=== PATIENT | male | born 1960 | race Caucasian/White ===

== ENCOUNTER 2016-05-03 21:10 | Inpatient (IN) | payer OTHER ==
[2016-05-03] MEDS ORDERED: methylPREDNISolone 125 MG* 2 ML VIAL IV ONE (21:11)
[2016-05-03] MEDS ORDERED: Albuterol/Ipratropium NEB.SOL* Albuterol 2.5 MG/Ipratropium 0.5 MG 3 ML INH ONE (21:11)
[2016-05-03 21:25] LABS: Hematocrit 45 % (42-52); Hemoglobin 15.2 g/dl (14.0-18.0); Mean Corpuscular HGB Conc 34 g/dl (31-36); Mean Corpuscular Hemoglobin 35 pg (27-31); Mean Corpuscular Volume 104 fL (80-94); Mean Platelet Volume 8 um3 (7.4-10.4); Red Blood Count 4.32 10^6/ul (4.0-5.4); Red Cell Distribution Width 12 % (10.5-15)
[2016-05-03 21:32] LABS: BIPAP yes; FIO2 40; Resp Rate 14
[2016-05-03 21:35] LABS: PCO2 Arterial 41 mmHg (35-45)
[2016-05-03 21:40] LABS: Albumin 4.5 g/dL (3.2-5.2); BUN/Creatinine Ratio 7.6 (8-20); Calcium 9.4 mg/dL (8.6-10.3); EGFR African American 110.3 (>60); EGFR Non-African American 85.7 (>60); Globulin 3.1 g/dL (2-4); Potassium 4.1 mmol/L (3.5-5.0); Total Bilirubin 0.5 mg/dL (0.2-1.0); Total Protein 7.6 g/dL (6.4-8.9)
--- NOTE | 2016-05-03 22:17 | RAD ---
Indication: Shortness of breath. Single frontal view of the chest performed at 2140 hours was reviewed. Comparison is made with previous exam dated February 19, 2015. No mediastinal shift is noted. Heart is of normal size and configuration. Lung earl appear clear. IMPRESSION: NO ACTIVE CARDIOPULMONARY DISEASE IS NOTED.
[2016-05-03 22:30] LABS: Troponin I 0.07 ng/mL (<0.04)
[2016-05-03 22:50] LABS: EPAP 6; FIO2 40; IPAP 16; Resp Rate 14
[2016-05-03 22:51] LABS: PCO2 Arterial 36 mmHg (35-45)
[2016-05-03] MEDS ORDERED: Aspirin TAB* 325 MG PO ONE (22:57)
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
[2016-05-03] MEDS ORDERED: Albuterol HFA INHALER* 8 gm MDI INH PRN (23:55)
[2016-05-03] MEDS ORDERED: Cyclobenzaprine TAB* 10 MG PO PRN (23:55)
[2016-05-04] MEDS: oxyCODONE/Acetamin 5/325 MG* TAB PO PRN ×3 (02:02→22:34)
[2016-05-04] MEDS: Azithromycin IV(*) 500 MG in NS 0.9% 250 ML* 250 ML IVPB SCH (02:03)
[2016-05-04] MEDS: Benzonatate CAP* 100 MG PO PRN (02:13)
[2016-05-04] MEDS ORDERED: methylPREDNISolone SOD 40 MG* 1 ML VIAL IV SCH (05:19)
[2016-05-04] MEDS: Albuterol/Ipratropium NEB.SOL* Albuterol 2.5 MG/Ipratropium 0.5 MG 3 ML INH PRN ×3 (05:50→10:51)
[2016-05-04] MEDS ORDERED: Heparin VIAL(*) 5000 UNITS/ML VIAL (FIVE THOUSAND) SUBCUT SCH (06:00)
[2016-05-04] MEDS ORDERED: Morphine INJ* 4 MG/ML 1 ML CARPUJECT ONE (06:28)
[2016-05-04] MEDS ORDERED: Nitroglycerin TAB 0.4 MG* 0.4 MG TAB ONE (06:29)
[2016-05-04] MEDS ORDERED: Heparin DRIP 25,000 UNITS(*) 25,000 UNITS/500 ML BAG IV SCH (06:45)
[2016-05-04] MEDS ORDERED: Morphine INJ* 2 MG/ML 1 ML CARPUJECT IV ONE (06:46)
[2016-05-04] MEDS ORDERED: Aspirin TAB* 325 MG PO ONE (06:48)
[2016-05-04] MEDS ORDERED: Morphine INJ* 2 MG/ML 1 ML CARPUJECT ONE (06:48)
[2016-05-04] MEDS: NS 0.9% 1000 ML* 1,000 ML IV SCH ×2 (06:53→23:40)
--- NOTE | 2016-05-04 06:55 | PN ---
Progress Note - Progress Note Note: CAT Team called. Patient with chest pain and worsening shortness of breath. Trop bumped to 0.85 and Lactic Acid to 6.6. Patient received 4 mg IV morphine and sl nitro with some relief. EKG done which showed sinus tach at 141 bpm. Nl axis . Qs in II,III and F. minimal ST depression in V4 - V6. Chest diffuse wheezing. Transferred to ICU. Although I still think demand ischemia may be NSTEMI. Start heparin drip. Give aspirin 325 mg. Cycle trops. NS and 125 cc/hr with increased lactic acid. Follow up lactic acid in 3 hours. Placed onb Bipap with improvement. Consider cardiology consult[facility]
[2016-05-04] MEDS ORDERED: Heparin VIAL(*) 5000 UNITS/ML VIAL (FIVE THOUSAND) IV SCH (07:00)
[2016-05-04 08:04] LABS: Troponin I 0.89 ng/mL (<0.04)
[2016-05-04] MEDS: Atorvastatin* 20 MG TAB PO SCH (08:04)
[2016-05-04] MEDS: Ferrous Sulfate TAB* 325 MG PO SCH (08:04)
[2016-05-04] MEDS: Omeprazole CAP* 20 MG PO SCH ×2 (08:04→20:33)
[2016-05-04] MEDS: Sucralfate TAB* 1 GM PO SCH ×2 (08:04→17:24)
[2016-05-04] MEDS: Nicotine PATCH 21 MG/24 HR* PATCH TRANSDERM SCH (08:11)
[2016-05-04] MEDS: Divalproex Sprinkle CAP* 125 MG PO SCH ×3 (08:11→20:33)
[2016-05-04] MEDS ORDERED: Omeprazole CAP* 20 MG PO SCH (09:00)
[2016-05-04] MEDS ORDERED: Influenza VAC *QUAD* 2016-17* 0.5 ML SYRINGE IM ONE (09:00)
[2016-05-04] MEDS ORDERED: Pneumococcal *Vac Polyvalent 0.5 ML VIAL IM ONE (09:00)
[2016-05-04 09:06] LABS: Hematocrit 41 % (42-52); Hemoglobin 13.7 g/dl (14.0-18.0); Mean Corpuscular HGB Conc 33 g/dl (31-36); Mean Corpuscular Hemoglobin 35 pg (27-31); Mean Platelet Volume 8 um3 (7.4-10.4); Red Blood Count 3.93 10^6/ul (4.0-5.4); Red Cell Distribution Width 13 % (10.5-15); White Blood Count 12.5 10^3/ul (3.5-10.8)
[2016-05-04 09:08] LABS: Comments Flag Yes; Mean Corpuscular Volume 105 fL (80-94)
[2016-05-04] MEDS ORDERED: Perflutren Prot Type A Micr (NF) 3 ML SDV IV ONE (09:20)
[2016-05-04] MEDS ORDERED: NS 0.9% 1000 ML* 1,000 ML IV ONE (09:52)
[2016-05-04] MEDS ORDERED: Perflutren Lipid Microsphere* 1.1 MG/ML VIAL INJ ONE (10:00)
--- NOTE | 2016-05-04 10:47 | ECHO ---
Patient: DANY NYE Rec#: [id number] : 1960 Date: 05/04/2016 Age: 56y Height: 162.56 cm / 64.0 in Weight: 73.48 kg / 161.9 lbs Sex: M BSA: 1.79 Admit Date#: 05/03/2016 Referring: Zoltan Gordillo MD Reading: Abiel Thomason MD Household Personal Assistant: Fabienne Hastings RDCS Household Personal Assistant: NAKIA CC: Mari Saunders MD Transthoracic Echocardiogram Findings History: COPD,seizures,GERD,GI bleed,former smoker,fibromyalgia. Technical Comments: The study is technically limited due to the patient's history of COPD. Completed at 1000. Left Ventricle: The left ventricular chamber size is normal. Global left ventricular wall motion and contractility are within normal limits. There is normal left ventricular systolic function. The estimated ejection fraction is 50-55%. The assessment of diastolic function is non-diagnostic. Left Atrium: The left atrial chamber size is normal. Right Ventricle: The right ventricular cavity size is normal. The right ventricular global systolic function is normal. Right Atrium: The right atrial cavity size is normal. Aortic Valve: The aortic valve is trileaflet. There is no evidence of aortic regurgitation. There is no evidence of aortic stenosis. Mitral Valve: The mitral valve leaflets appear normal. There is no evidence of mitral regurgitation. There is no evidence of mitral stenosis. Tricuspid Valve: The tricuspid valve leaflets are normal. There is no evidence of tricuspid valve regurgitation. Unable to estimate the right ventricular systolic pressure. There is no tricuspid stenosis. Pulmonic Valve: The pulmonic valve appears normal. There is no evidence of pulmonic regurgitation. There is no pulmonic stenosis. Pericardium: The pericardium appears normal. A pericardial fat pad is visualized. Aorta: The ascending aorta is not well visualized. The aortic arch is not well visualized. There is no dilation of the aortic root. Pulmonary Artery: The main pulmonary artery appears normal. Venous: The venous system is not well visualized. Contrast: Definity was used to optimize study. 1ml needed for optimization. Intravenous contrast was used to enhance endocardial border definition. Conclusions Global left ventricular wall motion and contractility are within normal limits. There is normal left ventricular systolic function. The estimated ejection fraction is 50-55%. The right ventricular global systolic function is normal. There is no evidence of aortic stenosis. There is no evidence of mitral regurgitation. There is no evidence of tricuspid valve regurgitation. Unable to estimate the right ventricular systolic pressure. The pericardium appears normal. The ascending aorta is not well visualized. Measurements Name Value Normal Range RVIDd (AP) 2D 1.8 cm (0.9 - 2.6) RVDdMajor (2D) 2.1 cm (2.2 - 4.4) IVSd (2D) 0.8 cm (0.6 - 1) LVPWd (2D) 0.8 cm (0.6 - 1) LVIDd (2D) 4.4 cm (3.6 - 5.4) LVIDs (2D) 3.6 cm - LV FS (2D) 18 % (25 - 45) Aortic Annulus 2 cm (1.4 - 2.6) Ao root diameter (2D) 3 cm (2.1 - 3.5) Name Value Normal Range MV E-wave Vmax 0.7 m/sec - MV deceleration time 96 msec - MV A-wave Vmax 1.1 m/sec - MV E:A ratio 0.7 ratio - LV septal e' Vmax 0.07 m/sec - LV lateral e' Vmax 0.1 m/sec - LV E:e' septal ratio 10 ratio - LV E:e' lateral ratio 7 ratio - Name Value Normal Range AV Vmax 1.5 m/sec - AV VTI 26 cm - AV peak gradient 9.06 mmHg - AV mean gradient 4.19 mmHg - LVOT Vmax 1.3 m/sec - LVOT VTI 17.7 cm - LVOT peak gradient 6.87 mmHg - LVOT mean gradient 3.24 mmHg - Name Value Normal Range PV Vmax 1.4 m/sec - PV peak gradient 7.78 mmHg -
[2016-05-04] MEDS ORDERED: Spiriva Inhaler DEVICE* 1 EACH DEVICE INH ONE (11:00)
[2016-05-04] MEDS: Albuterol HFA INHALER* 8 gm MDI INH SCH ×5 (11:18→19:37)
[2016-05-04] MEDS: Tiotropium CAP.INH* CAP.INH/18 MCG (USE ORDER SET !) INH SCH (11:19)
[2016-05-04] MEDS: methylPREDNISolone SOD 40 MG* 1 ML VIAL IV SCH ×3 (11:23→23:40)
[2016-05-04] MEDS: SPIRIVA RESPIMAT 1.25 MCG IN SCH (13:33)
--- NOTE | 2016-05-04 14:16 | PN ---
Progress Note - Progress Note Note: CRITICAL CARE MEDICINE Date: 05/04/16 Time: 1100 SUBJECTIVE: Patient seen and examined. PHYSICAL EXAM: Vital Signs: Reviewed. Neurologic: awake, communicating. HEENT: pupils equal. Sclera anicteric. Trachea midline. Cardiovascular: S1 S2 Respiratory: diffuse wheeze bl; prolonged exhalation. purse lip needs. vapotherm 40lpm Abdomen: Soft, nt. No r/g/r. Extremities: Warm. LABS: Reviewed. IMAGING: Reviewed. MEDICATIONS: Reviewed. ASSESSMENT: 56 F Acute hypercarbic respiratory failure copd exacerbation lactic acid demand ischemia with elevated troponin PLAN: Neurologic: awake, communicating, handling wob Cardiovascular: perfusing. may be a touch dry. and given lactate from wob will bolus liter fluid. Mild demand ischemia along with LA from his wob. not type 1. Respiratory: again wob and prolonged exhalation with accessory muscle use to a degree causing LA. keep on high flow O2. d/w pt if he feels tired or wheeze not breaking then would give morphine for vasopdilation and allow use of bipap. Neg dimer on admisssion, normal echo and significant bronchospasm on exam pointing away from VTE potentials. Can dc hepain gtt. Gastrointestinal: po diet. Renal/Metabolic: stable. f/u. Infectious Disease: on azithro and continued. Hematology: stable. hsq Endocrine: steroids. Musculoskeletal: oob. Psych/Social: pt expresses understanding and in good spirits. Supportive and preventative care as ordered. Vaccine: needs pneumvax , had flu already. SUP: po VTE prophylaxis: heparin Disposition: ICU Code Status: Full Critical Care Time: 30min Rafi Saucedo DO
--- NOTE | 2016-05-04 18:31 | HP ---
HISTORY AND PHYSICAL: DATE OF ADMISSION: 05/03/16 PRIMARY CARE PHYSICIAN: Mari Saunders MD CHIEF COMPLAINT: Shortness of breath. HISTORY OF PRESENT ILLNESS: The patient is a 56-year-old gentleman, who says for 1 to 1-1/2 weeks, he has had increasing shortness of breath with increased wheezing. He uses inhalers at home for his COPD, but he had no relief at this time. In fact, he coughed up some blood. He tried drinking a lot of water, which he felt would help, but did not work. He said he could not get in to his PCP and his shortness of breath got so bad, he came here. dry cough with significant chest tightness. In the ED, the patient was evaluated, initially required BiPAP because of the significant respiratory distress, but was good enough to come off the BiPAP. Initially, it was thought he could go to the floor , but later early in the morning, the patient did have a catching cold and was transferred to the unit for further BiPAP. 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 PAST SURGICAL HISTORY: Significant for right cataract extraction, right hip arthroplasty, and hiatal hernia repair. CURRENT MEDICATIONS: 1. Depakote 250 mg p.o. t.i.d. 2. Protonix 40 mg b.i.d. 3. Percocet 2 tabs t.i.d. as needed. 4. Spiriva 1 inhalation daily. 5. Sucralfate 1 g twice daily with meals. 6. Ferrous sulfate 325 mg daily. 7. Flexeril 10 mg every 8 hours as needed. 8. Lipitor 20 mg daily. 9. Albuterol inhaler 2 puffs every 6 hours as needed. ALLERGIES: PENICILLIN, anaphylaxis. FAMILY HISTORY: Mother at 67 of lymphoma. Father at 72 of stomach cancer. SOCIAL HISTORY: He still smokes about half a pack a day. He smoked up to pack a day, has been doing this for 30 years. Occasional alcohol. No recreational drug use. He is a cook. He from his . He has 1 daughter. His girlfriend, Deanne Healy, is his health care proxy. REVIEW OF SYSTEMS: A 14-point review of systems was completed with the patient. All pertinent positives and negatives are in the history of present illness, otherwise is negative. PHYSICAL EXAMINATION GENERAL: A pleasant gentleman, lying in bed, short of breath, in no acute distress at this time. VITAL SIGNS: Blood pressure 144/94, pulse ox 97%, respiratory rate 30 breaths per minute, heart rate 131 beats per minute, and temperature 98.1 degrees. HEENT: Normocephalic, atraumatic. Pupils are equal, round, and reactive to light. Moist mucous membranes. NECK: Supple. No JVD, bruits, palpable thyroid, or lymphadenopathy. CHEST: He has got bilateral diffuse wheezing. CARDIOVASCULAR: S1, S2 appreciated. Increased rate, regular rhythm. ABDOMEN: Positive bowel sounds in all 4 quadrants. Soft, nontender, and nondistended. EXTREMITIES: No cyanosis, clubbing, or edema; +2 peripheral pulses bilaterally. NEUROLOGIC: Alert and oriented x3. Moves all extremities. SKIN: No rashes or abnormalities. DIAGNOSTIC STUDIES/LAB DATA: White count 12.0, hemoglobin 15.2, hematocrit 45 , and platelets 275. Sodium 137, potassium 4.1, chloride 101, CO2 26, BUN 7, creatinine 0.92, glucose 105, and lactic acid 3.4. Troponin is 0.07. D-dimer is less than 200. Chest x-ray was interpreted by Radiology as no active cardiopulmonary disease is noted. EKG shows sinus tachycardia at 141 beats per minute, normal axis, and no acute ST-T wave changes. ASSESSMENT AND PLAN: 1. Chronic obstructive pulmonary disease exacerbation/respiratory distress: The patient was doing well, admitted to the floor, placed on DuoNeb q.2 hours, Solu- Medrol 40 mg IV q.8 hours, and Zithromax 500 mg IV every day. 2. Elevated troponin: I think this is most likely secondary to demand ischemia. I will get the patient's troponin in the morning, but I do not think he needs telemetry at this time. 3. Gastroesophageal reflux disease: Stable. Continue Protonix. 4. Seizure disorder. Apparently, after he was admitted, he said he had 2 seizures. He is on Depakote. I will get a Depakote level on the patient. 5. FEN: Regular diet. 6. DVT prophylaxis. Heparin subcu. 7. Code status: The patient is a full code. TIME SPENT: Over 80 minutes was spent on this H and P; more than 45 minutes of which was spent in direct [id number] contact with the patient, evaluation, physical exam, counseling, and coordination of care. Please note that early in the morning, the patient did have a catching cold, was transferred to the ICU. Please see progress note concerning the same. CC: Mari Saunders MD * [id number]/[facility] #: [id number]
[2016-05-04] MEDS: Heparin VIAL(*) 5000 UNITS/ML VIAL (FIVE THOUSAND) SUBCUT SCH (22:33)
[2016-05-05] MEDS: Azithromycin IV(*) 500 MG in NS 0.9% 250 ML* 250 ML IVPB SCH (01:39)
[2016-05-05] MEDS ORDERED: HYDROmorphone INJ* 1 MG/ML CARPUJECT SYRINGE IV SLOW PU ONE (03:36)
[2016-05-05] MEDS: Albuterol/Ipratropium NEB.SOL* Albuterol 2.5 MG/Ipratropium 0.5 MG 3 ML INH PRN ×2 (03:58→09:34)
[2016-05-05 05:37] LABS: Hematocrit 37 % (42-52); Hemoglobin 12.5 g/dl (14.0-18.0); Mean Corpuscular HGB Conc 33 g/dl (31-36); Mean Corpuscular Hemoglobin 35 pg (27-31); Mean Platelet Volume 9 um3 (7.4-10.4); Red Blood Count 3.53 10^6/ul (4.0-5.4); Red Cell Distribution Width 12 % (10.5-15); White Blood Count 21.5 10^3/ul (3.5-10.8)
[2016-05-05 05:38] LABS: Comments Flag Yes; Mean Corpuscular Volume 106 fL (80-94)
[2016-05-05 05:39] LABS: Add Diff/Slide Review? Slide Review Added
[2016-05-05] MEDS: Heparin VIAL(*) 5000 UNITS/ML VIAL (FIVE THOUSAND) SUBCUT SCH ×3 (05:39→21:42)
[2016-05-05] MEDS: methylPREDNISolone SOD 40 MG* 1 ML VIAL IV SCH ×3 (05:39→17:54)
[2016-05-05] MEDS: Nicotine Patch Removal NOTE FOLLOW UP SCH (05:40)
[2016-05-05 05:56] LABS: BUN/Creatinine Ratio 17.6 (8-20); Calcium 8.5 mg/dL (8.6-10.3); EGFR African American 141.8 (>60); EGFR Non-African American 110.2 (>60); Potassium 4.5 mmol/L (3.5-5.0)
[2016-05-05] MEDS: oxyCODONE/Acetamin 5/325 MG* TAB PO PRN ×2 (07:37→14:55)
--- NOTE | 2016-05-05 09:15 | RAD ---
HISTORY: Left humeral pain and tenderness COMPARISONS: None relevant TECHNIQUE: Multiple transverse and longitudinal ultrasound images were obtained of the left upper extremity from the level of the internal jugular vein inferiorly through to the infra-cubital veins using grayscale, color Doppler, and spectral Doppler imaging with and without compression and with augmentation. Comparison images were obtained of the contralateral internal jugular vein and subclavian vein. FINDINGS: VEINS: The venous system of the left upper extremity is compressible throughout its course, with normal flow on color Doppler imaging and normal response to augmentation on spectral Doppler imaging. SOFT TISSUES: Unremarkable. OTHER FINDINGS: None. IMPRESSION: NO LEFT UPPER EXTREMITY DEEP VEIN THROMBOSIS
[2016-05-05] MEDS: Nicotine PATCH 21 MG/24 HR* PATCH TRANSDERM SCH (09:24)
[2016-05-05] MEDS: Divalproex Sprinkle CAP* 125 MG PO SCH ×3 (09:25→21:43)
[2016-05-05] MEDS: Omeprazole CAP* 20 MG PO SCH ×2 (09:26→21:43)
[2016-05-05] MEDS: Sucralfate TAB* 1 GM PO SCH ×2 (09:26→17:54)
[2016-05-05] MEDS: Atorvastatin* 20 MG TAB PO SCH (09:26)
[2016-05-05] MEDS: Ferrous Sulfate TAB* 325 MG PO SCH (09:26)
[2016-05-05] MEDS: Tiotropium CAP.INH* CAP.INH/18 MCG (USE ORDER SET !) INH SCH (09:34)
--- NOTE | 2016-05-05 11:44 | PN ---
Progress Note - Progress Note Note: CRITICAL CARE MEDICINE Date: 05/05/16 Time: 900 SUBJECTIVE: Patient seen and examined. Feels a little better. up in chair. states he slept some. PHYSICAL EXAM: Vital Signs: Reviewed. dec FiO2. Neurologic: awake, communicating. HEENT: pupils equal. Sclera anicteric. Trachea midline. Cardiovascular: S1 S2 Respiratory: diffuse wheeze bl still there but less. vapotherm 30lpm Abdomen: Soft, nt. Extremities: Warm. mildly tremulous LABS: Reviewed. IMAGING: Reviewed. MEDICATIONS: Reviewed. ASSESSMENT: 56 F Acute hypercarbic respiratory failure copd exacerbation bronchitis lactic acid demand ischemia with elevated troponin Left iv site mild local phlebitis PLAN: Neurologic: awake, communicating. Cardiovascular: perfusing. fluid status adequate. Respiratory: wob better. able to tolerate phases but still with prolonged exhalation although better and still with trigger cough on force exhalation. keep nebs and adjunstives. as explained to pt, altredy a little tremulous from nebs and steroids - will keep same regimen and see if he can still recover from his bronchospasm, but going to take time. He expressed understanding. Gastrointestinal: melissa po diet well - better then usual (probably sec to steroids ). Renal/Metabolic: stable. Infectious Disease: on azithro. wbc reactive post steroids. still don't have pneumonia, just bronchitis that is likely more viral but keep azithro for copd exac Hematology: stable. hsq Endocrine: steroids continued. prednisone taper after bronchospasm improved. Musculoskeletal: oob. Psych/Social: pt expresses understanding and in good spirits. Supportive and preventative care as ordered. SUP: po VTE prophylaxis: heparin Disposition: ICU Code Status: Full Critical Care Time: 30min Rafi Saucedo DO
[2016-05-05] MEDS: Albuterol 2.5 MG/3 ML NEB.SOL* (0.083%) INH SCH ×4 (12:32→22:41)
[2016-05-05] MEDS: Mometasone/Formoter 200/5 MDI INH SCH ×3 (12:40→22:41)
[2016-05-05] MEDS: SPIRIVA RESPIMAT 1.25 MCG IN SCH (16:16)
--- NOTE | 2016-05-05 16:24 | RAD ---
Indication: Respiratory failure, wheezing. Single frontal view of the chest performed at 1550 hours was reviewed. Comparison is made with previous exam dated May 03, 2016. No mediastinal shift is noted. Heart is of normal size and configuration. Lung earl appear clear. IMPRESSION: NO ACTIVE CARDIOPULMONARY DISEASE IS NOTED.
[2016-05-05] MEDS: Morphine INJ* 2 MG/ML 1 ML CARPUJECT IV PRN ×2 (16:52→21:56)
[2016-05-05] MEDS: Montelukast Sodium TAB* 10 MG PO SCH (16:55)
[2016-05-06] MEDS: methylPREDNISolone SOD 40 MG* 1 ML VIAL IV SCH ×5 (00:29→23:59)
[2016-05-06] MEDS: oxyCODONE/Acetamin 5/325 MG* TAB PO PRN ×3 (00:29→23:59)
[2016-05-06] MEDS: Azithromycin IV(*) 500 MG in NS 0.9% 250 ML* 250 ML IVPB SCH (01:43)
[2016-05-06] MEDS: LORazepam INJ* 2 MG/ML 1 ML VIAL IV PUSH PRN (02:56)
[2016-05-06] MEDS: Albuterol 2.5 MG/3 ML NEB.SOL* (0.083%) INH SCH ×2 (03:49→07:52)
[2016-05-06] MEDS: Heparin VIAL(*) 5000 UNITS/ML VIAL (FIVE THOUSAND) SUBCUT SCH ×3 (05:43→21:00)
[2016-05-06] MEDS: Nicotine Patch Removal NOTE FOLLOW UP SCH (05:46)
[2016-05-06] MEDS: Tiotropium CAP.INH* CAP.INH/18 MCG (USE ORDER SET !) INH SCH (07:52)
[2016-05-06] MEDS: Mometasone/Formoter 200/5 MDI INH SCH ×2 (07:54→20:23)
[2016-05-06] MEDS: Albuterol HFA INHALER* 8 gm MDI INH SCH ×4 (08:03→20:23)
[2016-05-06] MEDS: Sucralfate TAB* 1 GM PO SCH ×2 (08:19→15:45)
[2016-05-06] MEDS: Divalproex Sprinkle CAP* 125 MG PO SCH ×3 (08:20→20:54)
[2016-05-06] MEDS: Atorvastatin* 20 MG TAB PO SCH (08:20)
[2016-05-06] MEDS: Montelukast Sodium TAB* 10 MG PO SCH (08:20)
[2016-05-06] MEDS: Ferrous Sulfate TAB* 325 MG PO SCH (08:20)
[2016-05-06] MEDS: Omeprazole CAP* 20 MG PO SCH ×2 (08:20→20:55)
[2016-05-06] MEDS: Morphine INJ* 2 MG/ML 1 ML CARPUJECT IV PRN ×3 (08:22→17:08)
[2016-05-06] MEDS: Nicotine PATCH 21 MG/24 HR* PATCH TRANSDERM SCH (08:28)
--- NOTE | 2016-05-06 10:53 | PN ---
Progress Note - Progress Note Note: CRITICAL CARE MEDICINE Date: 05/06/16 Time: 920 SUBJECTIVE: Patient seen and examined. Feels a little better. slept some. PHYSICAL EXAM: Vital Signs: Reviewed. dec FiO2 and flow. Hr a little better. Neurologic: awake, communicating. HEENT: pupils equal. Sclera anicteric. Trachea midline. Cardiovascular: S1 S2 Respiratory: less wheeze bl but still there but not whole phase now. vapotherm 20lpm 30% Abdomen: Soft, nt. Extremities: Warm; mild dep edema LABS: Reviewed. IMAGING: Reviewed. MEDICATIONS: Reviewed. ASSESSMENT: 56 F Acute hypercarbic respiratory failure copd exacerbation more so status asthmaticus bronchitis lactic acid demand ischemia with elevated troponin Left iv site mild local phlebitis PLAN: Neurologic: awake, communicating. Cardiovascular: perfusing. fluid status stable. Respiratory: wob continues to slowly improve. CXR done yesterday to ensure no infiltrate. Remains more like status asthmaticus in nature post bronchitis. Improving. keep nebs and adjunstives. steroids iv for now. He expressed understanding. to [place] today. vapo for rescue. Gastrointestinal: po Renal/Metabolic: stable. Infectious Disease: on azithro and would complete 5 days. Hematology: stable. hsq Endocrine: steroids continued. prednisone taper after bronchospasm improved. Musculoskeletal: oob. Psych/Social: outpt meds. pt expresses understanding. Supportive and preventative care as ordered. SUP: po VTE prophylaxis: heparin Disposition: ICU today and potential floor tomorrow. Code Status: Full Critical Care Time: 30min Rafi Saucedo DO
[2016-05-06] MEDS: SPIRIVA RESPIMAT 1.25 MCG IN SCH (12:27)
[2016-05-06] MEDS: Benzonatate CAP* 100 MG PO PRN ×2 (14:20→20:55)
[2016-05-06] MEDS: Acetaminophen TAB* 325 MG PO PRN (20:55)
[2016-05-07] MEDS: Albuterol HFA INHALER* 8 gm MDI INH SCH ×3 (00:31→08:28)
[2016-05-07] MEDS: Azithromycin IV(*) 500 MG in NS 0.9% 250 ML* 250 ML IVPB SCH (02:07)
[2016-05-07] MEDS: LORazepam INJ* 2 MG/ML 1 ML VIAL IV PUSH PRN (05:23)
[2016-05-07] MEDS: methylPREDNISolone SOD 40 MG* 1 ML VIAL IV SCH ×3 (05:25→17:26)
[2016-05-07] MEDS: Benzonatate CAP* 100 MG PO PRN (05:26)
[2016-05-07] MEDS: Heparin VIAL(*) 5000 UNITS/ML VIAL (FIVE THOUSAND) SUBCUT SCH ×3 (05:26→21:05)
[2016-05-07] MEDS: Nicotine Patch Removal NOTE FOLLOW UP SCH (05:29)
[2016-05-07 06:54] LABS: Add Diff/Slide Review? Slide Review Added; Comments Flag Yes; Hematocrit 38 % (42-52); Hemoglobin 12.7 g/dl (14.0-18.0); Mean Corpuscular HGB Conc 34 g/dl (31-36); Mean Corpuscular Hemoglobin 35 pg (27-31); Mean Corpuscular Volume 105 fL (80-94); Mean Platelet Volume 9 um3 (7.4-10.4); Red Cell Distribution Width 12 % (10.5-15)
[2016-05-07 07:07] LABS: BUN/Creatinine Ratio 24.3 (8-20); Calcium 8.5 mg/dL (8.6-10.3); EGFR African American 141.8 (>60); EGFR Non-African American 110.2 (>60); Magnesium 2.3 mg/dL (1.9-2.7); Phosphorus 2.8 mg/dL (2.5-5.0)
[2016-05-07] MEDS: Sucralfate TAB* 1 GM PO SCH ×2 (08:21→17:25)
[2016-05-07] MEDS: Omeprazole CAP* 20 MG PO SCH ×2 (08:21→21:05)
[2016-05-07] MEDS: Morphine INJ* 2 MG/ML 1 ML CARPUJECT IV PRN ×3 (08:21→18:47)
[2016-05-07] MEDS: Divalproex Sprinkle CAP* 125 MG PO SCH ×3 (08:21→21:05)
[2016-05-07] MEDS: Atorvastatin* 20 MG TAB PO SCH (08:21)
[2016-05-07] MEDS: Montelukast Sodium TAB* 10 MG PO SCH (08:22)
[2016-05-07] MEDS: Ferrous Sulfate TAB* 325 MG PO SCH (08:22)
[2016-05-07] MEDS: Nicotine PATCH 21 MG/24 HR* PATCH TRANSDERM SCH (08:22)
[2016-05-07] MEDS: Tiotropium CAP.INH* CAP.INH/18 MCG (USE ORDER SET !) INH SCH (08:27)
[2016-05-07] MEDS: Mometasone/Formoter 200/5 MDI INH SCH ×2 (08:28→19:03)
[2016-05-07] MEDS: SPIRIVA RESPIMAT 1.25 MCG IN SCH (08:28)
[2016-05-07] MEDS ORDERED: Albuterol 2.5 MG/3 ML NEB.SOL* (0.083%) INH PRN (10:48)
[2016-05-07 10:58] LABS: Troponin I 0.05 ng/mL (<0.04)
[2016-05-07] MEDS: Albuterol 2.5 MG/3 ML NEB.SOL* (0.083%) INH SCH ×4 (11:02→23:27)
--- NOTE | 2016-05-07 11:03 | PN ---
Subjective Date of Service: 05/07/16 Interval History: Pt is feeling better but still quite SOB. He feels that his chest is still tight. He is coughing up clear/whitish sputum. He has been trying to get up an moving around. Objective Active Medications: Acetaminophen (Tylenol Tab*) 650 mg PO Q4H PRN PRN Reason: FEVER/PAIN Last Admin: 05/06/16 20:55 Dose: 650 mg Albuterol (Ventolin 2.5 Mg/3 Ml Neb.Olivia*) 2.5 mg INH [id number] AWAKE [facility] Albuterol (Ventolin 2.5 Mg/3 Ml Neb.Olivia*) 2.5 mg INH Q2H PRN PRN Reason: SOB/WHEEZING Atorvastatin Calcium (Lipitor*) 20 mg PO DAILY [facility] Last Admin: 05/07/16 08:21 Dose: 20 mg Benzonatate (Tessalon Cap*) 200 mg PO TID PRN PRN Reason: COUGH Last Admin: 05/07/16 05:26 Dose: 200 mg Cyclobenzaprine HCl (Flexeril Tab*) 10 mg PO Q8HR PRN PRN Reason: SPASMS Last Admin: 05/06/16 20:55 Dose: 10 mg Divalproex Sodium (Depakote Sprinkle Cap*) 250 mg PO TID [facility] Last Admin: 05/07/16 08:21 Dose: 250 mg Ferrous Sulfate (Ferrous Sulfate Tab*) 325 mg PO DAILY [facility] Last Admin: 05/07/16 08:22 Dose: 325 mg Guaifenesin (Mucinex*) 1,200 mg PO BID [facility] Heparin Sodium (Porcine) (Heparin Vial(*)) 5,000 units SUBCUT Q8HR [facility] Last Admin: 05/07/16 05:26 Dose: 5,000 units Azithromycin 500 mg/ Sodium (Chloride) 250 mls @ 250 mls/hr IVPB Q24H [facility] Last Admin: 05/07/16 02:07 Dose: 250 mls/hr Lorazepam (Ativan Tab(*)) 1 mg PO Q6H PRN PRN Reason: ANXIETY Methylprednisolone Sodium Succinate (Solu-Medrol*) 40 mg IV Q6H [facility] Last Admin: 05/07/16 05:25 Dose: 40 mg Mometasone Furoate/Formoterol Fumar (Dulera 200/5 Mdi*) 2 puff INH BID [facility] Last Admin: 05/07/16 08:28 Dose: 2 puff Montelukast Sodium (Singulair Tab*) 10 mg PO DAILY [facility] Last Admin: 05/07/16 08:22 Dose: 10 mg Morphine Sulfate (Morphine Inj (Syringe)*) 2 mg IV Q4H PRN PRN Reason: PAIN - MILD Last Admin: 05/07/16 08:21 Dose: 2 mg Nicotine (Nicotine Patch 21 Mg/24 Hr*) 1 patch TRANSDERM Q24H [facility] Last Admin: 05/07/16 08:22 Dose: 1 patch Omeprazole (Prilosec Cap*) 20 mg PO BID [facility] Last Admin: 05/07/16 08:21 Dose: 20 mg Oxycodone/Acetaminophen (Percocet 5/325 Tab*) 2 tab PO TID PRN PRN Reason: pain Last Admin: 05/06/16 23:59 Dose: 2 tab Pharmacy Profile Note (Nicotine Patch Removal Note*) 1 note FOLLOW UP 0600 [facility] Last Admin: 05/07/16 05:29 Dose: 1 note Sucralfate (Carafate*) 1 gm PO BID WITH MEALS [facility] Last Admin: 05/07/16 08:21 Dose: 1 gm Tiotropium [place] (Spiriva Cap.Inh*) 1 cap INH DAILY [facility] Last Admin: 05/07/16 08:27 Dose: 1 cap Vital Signs 05/06/16 05/06/16 05/06/16 11:00 12:00 12:27 Temperature 98 F Pulse Rate 103 102 Respiratory 18 17 25 Rate Blood Pressure 120/56 106/42 (mmHg) O2 Sat by Pulse 96 96 Oximetry 05/06/16 05/06/16 05/06/16 13:00 13:54 14:00 Temperature Pulse Rate 117 121 121 Respiratory 22 12 24 Rate Blood Pressure 118/56 (mmHg) O2 Sat by Pulse 95 96 96 Oximetry 05/06/16 05/06/16 05/06/16 15:00 16:00 17:00 Temperature 99 F Pulse Rate 122 124 113 Respiratory 22 21 20 Rate Blood Pressure 121/74 164/90 129/80 (mmHg) O2 Sat by Pulse 95 96 95 Oximetry 05/06/16 05/06/16 05/06/16 17:08 18:00 19:00 Temperature Pulse Rate 113 109 Respiratory 24 23 20 Rate Blood Pressure 125/78 120/69 (mmHg) O2 Sat by Pulse 95 94 Oximetry 05/06/16 05/06/16 05/06/16 19:24 20:00 20:25 Temperature 98.6 F Pulse Rate 127 Respiratory 28 Rate Blood Pressure 139/82 (mmHg) O2 Sat by Pulse 96 93 Oximetry 05/06/16 05/06/16 05/06/16 21:00 22:00 23:00 Temperature Pulse Rate Respiratory 21 21 21 Rate Blood Pressure 126/70 118/53 118/73 (mmHg) O2 Sat by Pulse 94 97 97 Oximetry 05/06/16 05/06/16 05/07/16 23:16 23:35 00:00 Temperature 98.2 F Pulse Rate Respiratory 20 24 Rate Blood Pressure (mmHg) O2 Sat by Pulse 95 95 Oximetry 05/07/16 05/07/16 05/07/16 00:01 01:00 02:00 Temperature Pulse Rate Respiratory 24 17 17 Rate Blood Pressure 139/76 139/79 133/75 (mmHg) O2 Sat by Pulse 95 97 97 Oximetry 05/07/16 05/07/16 05/07/16 03:00 03:02 03:21 Temperature 98.0 F Pulse Rate Respiratory 16 17 Rate Blood Pressure 97/78 (mmHg) O2 Sat by Pulse 95 Oximetry 05/07/16 05/07/16 05/07/16 03:22 04:00 04:11 Temperature Pulse Rate Respiratory 17 17 18 Rate Blood Pressure 128/74 100/59 (mmHg) O2 Sat by Pulse 97 93 Oximetry 05/07/16 05/07/16 05/07/16 05:00 05:23 06:00 Temperature Pulse Rate Respiratory 24 26 23 Rate Blood Pressure 111/75 (mmHg) O2 Sat by Pulse 93 94 Oximetry 05/07/16 05/07/16 05/07/16 07:00 08:00 08:14 Temperature Pulse Rate 99 114 Respiratory 21 19 24 Rate Blood Pressure 116/65 (mmHg) O2 Sat by Pulse 91 95 Oximetry 05/07/16 05/07/16 05/07/16 08:21 08:50 09:00 Temperature 98.4 F Pulse Rate 110 Respiratory 25 25 Rate Blood Pressure (mmHg) O2 Sat by Pulse 95 Oximetry 05/07/16 10:00 Temperature Pulse Rate 116 Respiratory 21 Rate Blood Pressure (mmHg) O2 Sat by Pulse 93 Oximetry Oxygen Devices in Use Now: Nasal Cannula - 6L-92% Appearance: Middle aged male sitting up in bed, NAD Eyes: No Scleral Icterus Ears/Nose/Mouth/Throat: Mucous Membranes Moist Respiratory: Symmetrical Chest Expansion and Respiratory Effort, - - breath sounds are tight but clear Cardiovascular: NL Sounds; No Murmurs; No JVD, - - tachycardic but regular, trace LE edema Abdominal: NL Sounds; No Tenderness; No Distention Extremities: No Clubbing, Cyanosis Skin: No Rash or Ulcers, No Nodules or Sclerosis Neurological: Alert and Oriented x 3 Result Diagrams: 05/07/16 06:20 05/07/16 06:20 Microbiology and Other Data: Microbiology 05/04/16 05:40 Aerobic Blood Culture - Preliminary Blood Venous No Growth Day 3 Anaerobic Blood Culture - Preliminary No Growth Day 3 Blood Culture - Final 05/04/16 22:30 Aerobic Blood Culture - Preliminary Blood Venous No Growth Day 2 Anaerobic Blood Culture - Preliminary No Growth Day 2 Blood Culture - Final Assess/Plan/Problems-Billing Mr Garcia is a 56 yo M who has a h/o COPD, chronic pain, fibromyalgia and GERD who presented to the ER with c/o progressive SOB. - Patient Problems (1) Acute respiratory failure with hypoxia Current Visit: Yes Status: Acute Code(s): J96.01 - ACUTE RESPIRATORY FAILURE WITH HYPOXIA SNOMED Code(s): 56037462 Comment: Secondary to COPD exacerbation which was felt to be secondary to bronchitis. There was no evaluation for influenza on admission and it is not clear to me that this information now would be beneficial. Will discuss with ID. Hypoxia is improving though he is still requiring 6L O2. (2) COPD exacerbation Current Visit: Yes Status: Acute Code(s): J44.1 - CHRONIC OBSTRUCTIVE PULMONARY DISEASE W (ACUTE) EXACERBATION SNOMED Code(s): 389941793 Comment: The patient is slowly improving. Still with very tight breath sounds. Will change to standing albuterol neb q4hr and q2hr prn. Continue spiriva and dulera. Continue solumedrol 40mg IV q6hr. I suspect he is going to need another couple days in the hospital before he is ready to go home. (3) Elevated troponin Current Visit: Yes Status: Acute Code(s): R74.8 - ABNORMAL LEVELS OF OTHER SERUM ENZYMES SNOMED Code(s): 541040791 Comment: Likely secondary to demand ischemia from his hypoxic and hypercarbic respiratory failure. Echo did not reveal any wall motion abnormalities. He would benefit from a stress test as an outpatient once he has fully recovered from this acute illness. (4) Seizure disorder Current Visit: Yes Status: Acute Code(s): G40.909 - EPILEPSY, UNSP, NOT INTRACTABLE, WITHOUT STATUS EPILEPTICUS SNOMED Code(s): 638499569 Comment: Continue depakote. (5) Tobacco abuse Current Visit: Yes Status: Acute Code(s): Z72.0 - TOBACCO USE SNOMED Code( s): 470135114 Comment: Pt is motivated to quit smoking. Continue nicotine patch. (6) DVT prophylaxis Current Visit: Yes Status: Acute Code(s): UQH8985 - SNOMED Code(s): 888643954 Comment: SQ heparin (7) Full code status Current Visit: Yes Status: Acute Code(s): Z78.9 - OTHER SPECIFIED HEALTH STATUS SNOMED Code(s): 349369478
[2016-05-07] MEDS: oxyCODONE/Acetamin 5/325 MG* TAB PO PRN ×2 (11:13→22:48)
[2016-05-07] MEDS: guaiFENesin ER TAB 600 MG PO SCH ×2 (11:14→21:05)
[2016-05-07] MEDS: Acetaminophen TAB* 325 MG PO PRN (18:48)
[2016-05-08] MEDS: methylPREDNISolone SOD 40 MG* 1 ML VIAL IV SCH ×3 (00:20→12:45)
[2016-05-08] MEDS: LORazepam TAB(*) 1 MG PO PRN ×2 (00:25→23:53)
[2016-05-08] MEDS: Azithromycin IV(*) 500 MG in NS 0.9% 250 ML* 250 ML IVPB SCH (01:44)
[2016-05-08] MEDS: Albuterol 2.5 MG/3 ML NEB.SOL* (0.083%) INH SCH ×6 (03:15→23:36)
[2016-05-08] MEDS: Heparin VIAL(*) 5000 UNITS/ML VIAL (FIVE THOUSAND) SUBCUT SCH ×3 (05:03→22:00)
[2016-05-08] MEDS: Nicotine Patch Removal NOTE FOLLOW UP SCH (05:04)
[2016-05-08 05:59] LABS: Hematocrit 36 % (42-52); Hemoglobin 12.1 g/dl (14.0-18.0); Mean Corpuscular HGB Conc 34 g/dl (31-36); Mean Corpuscular Hemoglobin 36 pg (27-31); Mean Platelet Volume 9 um3 (7.4-10.4); Red Blood Count 3.42 10^6/ul (4.0-5.4); Red Cell Distribution Width 13 % (10.5-15); White Blood Count 18.5 10^3/ul (3.5-10.8)
[2016-05-08 06:02] LABS: Comments Flag Yes; Mean Corpuscular Volume 105 fL (80-94)
[2016-05-08] MEDS: Tiotropium CAP.INH* CAP.INH/18 MCG (USE ORDER SET !) INH SCH (08:59)
[2016-05-08] MEDS: Mometasone/Formoter 200/5 MDI INH SCH ×2 (09:00→20:01)
[2016-05-08] MEDS: guaiFENesin ER TAB 600 MG PO SCH ×2 (10:33→20:49)
[2016-05-08] MEDS: Nicotine PATCH 21 MG/24 HR* PATCH TRANSDERM SCH (10:33)
[2016-05-08] MEDS: Sucralfate TAB* 1 GM PO SCH ×2 (10:34→17:08)
[2016-05-08] MEDS: Montelukast Sodium TAB* 10 MG PO SCH (10:34)
[2016-05-08] MEDS: Divalproex Sprinkle CAP* 125 MG PO SCH ×3 (10:34→20:50)
[2016-05-08] MEDS: Omeprazole CAP* 20 MG PO SCH ×2 (10:34→20:50)
[2016-05-08] MEDS: Ferrous Sulfate TAB* 325 MG PO SCH (10:34)
[2016-05-08] MEDS: Atorvastatin* 20 MG TAB PO SCH (10:34)
[2016-05-08] MEDS: Morphine INJ* 2 MG/ML 1 ML CARPUJECT IV PRN ×2 (10:45→16:01)
--- NOTE | 2016-05-08 12:28 | PN ---
Subjective Date of Service: 05/08/16 Interval History: Patient cough is tight, somewhat productive. Bringing up brown sputum. Reports working on quitting tobacco, was on 4 cig/day before admit. Has walked in evans w/ O2, some [place]. Does not have O2 at home. Family History: Unchanged from Admission Social History: Unchanged from Admission Past Medical History: Unchanged from Admission Objective Active Medications: Acetaminophen (Tylenol Tab*) 650 mg PO Q4H PRN PRN Reason: FEVER/PAIN Last Admin: 05/07/16 18:48 Dose: 650 mg Albuterol (Ventolin 2.5 Mg/3 Ml Neb.Olivia*) 2.5 mg INH [id number] AWAKE [facility] Last Admin: 05/08/16 11:58 Dose: 2.5 mg Albuterol (Ventolin 2.5 Mg/3 Ml Neb.Olivia*) 2.5 mg INH Q2H PRN PRN Reason: SOB/WHEEZING Last Admin: 05/07/16 13:41 Dose: 2.5 mg Atorvastatin Calcium (Lipitor*) 20 mg PO DAILY [facility] Last Admin: 05/08/16 10:34 Dose: 20 mg Benzonatate (Tessalon Cap*) 200 mg PO TID PRN PRN Reason: COUGH Last Admin: 05/07/16 05:26 Dose: 200 mg Cyclobenzaprine HCl (Flexeril Tab*) 10 mg PO Q8HR PRN PRN Reason: SPASMS Last Admin: 05/06/16 20:55 Dose: 10 mg Divalproex Sodium (Depakote Sprinkle Cap*) 250 mg PO TID [facility] Last Admin: 05/08/16 10:34 Dose: 250 mg Ferrous Sulfate (Ferrous Sulfate Tab*) 325 mg PO DAILY [facility] Last Admin: 05/08/16 10:34 Dose: 325 mg Guaifenesin (Mucinex*) 1,200 mg PO BID [facility] Last Admin: 05/08/16 10:33 Dose: 1,200 mg Heparin Sodium (Porcine) (Heparin Vial(*)) 5,000 units SUBCUT Q8HR [facility] Last Admin: 05/08/16 05:03 Dose: 5,000 units Azithromycin 500 mg/ Sodium (Chloride) 250 mls @ 250 mls/hr IVPB Q24H [facility] Last Admin: 05/08/16 01:44 Dose: 250 mls/hr Lorazepam (Ativan Tab(*)) 1 mg PO Q6H PRN PRN Reason: ANXIETY Last Admin: 05/08/16 00:25 Dose: 1 mg Mometasone Furoate/Formoterol Fumar (Dulera 200/5 Mdi*) 2 puff INH BID [facility] Last Admin: 05/08/16 09:00 Dose: 2 puff Montelukast Sodium (Singulair Tab*) 10 mg PO DAILY [facility] Last Admin: 05/08/16 10:34 Dose: 10 mg Morphine Sulfate (Morphine Inj (Syringe)*) 2 mg IV Q4H PRN PRN Reason: PAIN - MILD Last Admin: 05/08/16 10:45 Dose: 2 mg Nicotine (Nicotine Patch 21 Mg/24 Hr*) 1 patch TRANSDERM Q24H [facility] Last Admin: 05/08/16 10:33 Dose: 1 patch Omeprazole (Prilosec Cap*) 20 mg PO BID [facility] Last Admin: 05/08/16 10:34 Dose: 20 mg Oxycodone/Acetaminophen (Percocet 5/325 Tab*) 2 tab PO TID PRN PRN Reason: pain Last Admin: 05/07/16 22:48 Dose: 2 tab Pharmacy Profile Note (Nicotine Patch Removal Note*) 1 note FOLLOW UP 0600 [facility] Last Admin: 05/08/16 05:04 Dose: 1 note Prednisone (Deltasone Tab*) 50 mg PO 1600 [facility] Sucralfate (Carafate*) 1 gm PO BID WITH MEALS [facility] Last Admin: 05/08/16 10:34 Dose: 1 gm Tiotropium [place] (Spiriva Cap.Inh*) 1 cap INH DAILY [facility] Last Admin: 05/08/16 08:59 Dose: 1 cap Vital Signs 05/08/16 05/08/16 05/08/16 04:00 09:03 10:45 Temperature 36.7 C Pulse Rate 109 109 Respiratory 20 16 24 Rate Blood Pressure 111/72 (mmHg) O2 Sat by Pulse 97 98 Oximetry 05/08/16 12:00 Temperature Pulse Rate 110 Respiratory 18 Rate Blood Pressure (mmHg) O2 Sat by Pulse 98 Oximetry Oxygen Devices in Use Now: Nasal Cannula - 6L-92% Eyes: No Scleral Icterus Ears/Nose/Mouth/Throat: Clear Oropharnyx Neck: NL Appearance and Movements; NL JVP, Trachea Midline Respiratory: - - diffuse ronchi and upper airway sounds Cardiovascular: NL Sounds; No Murmurs; No JVD, RRR Abdominal: NL Sounds; No Tenderness; No Distention Neurological: Alert and Oriented x 3 Lines/Tubes/Other Access: Clean, Dry and Intact Peripheral IV Nutrition: Taking PO's Result Diagrams: 05/08/16 04:51 05/07/16 06:20 Microbiology and Other Data: Microbiology Assess/Plan/Problems-Billing Mr Garcia is a 56 yo M who has a h/o COPD, chronic pain, fibromyalgia and GERD who presented to the ER with c/o progressive SOB, admitted to ICU with COPD exacerbation, hypercapneic/hypoxic respiratory failure. - Patient Problems (1) Acute respiratory failure with hypoxia Current Visit: Yes Status: Acute Priority: High Code(s): J96.01 - ACUTE RESPIRATORY FAILURE WITH HYPOXIA SNOMED Code(s): 55959145 Comment: -patient slowly improving, maintaining mental status on O2, no longer on BiPAP. (2) COPD exacerbation Current Visit: Yes Status: Acute Priority: High Code(s): J44.1 - CHRONIC OBSTRUCTIVE PULMONARY DISEASE W (ACUTE) EXACERBATION SNOMED Code(s): 198115252 Comment: -Improving, will continue albuterol neb q4hr and q2hr prn. Continue spiriva and dulera. -switching to oral prednisone -potential discharge tomorrow (3) DVT prophylaxis Current Visit: Yes Status: Acute Priority: Low Code(s): DZC5122 - SNOMED Code(s): 272306048 Comment: SQ heparin
[2016-05-08] MEDS ORDERED: predniSONE TAB* 50 MG PO SCH (16:00)
[2016-05-08] MEDS: oxyCODONE/Acetamin 5/325 MG* TAB PO PRN (20:49)
[2016-05-09] MEDS: Azithromycin IV(*) 500 MG in NS 0.9% 250 ML* 250 ML IVPB SCH (01:04)
[2016-05-09] MEDS: Morphine INJ* 2 MG/ML 1 ML CARPUJECT IV PRN ×2 (02:25→11:11)
[2016-05-09] MEDS: Albuterol 2.5 MG/3 ML NEB.SOL* (0.083%) INH SCH ×4 (04:10→15:04)
[2016-05-09] MEDS: Nicotine Patch Removal NOTE FOLLOW UP SCH (05:13)
[2016-05-09] MEDS: Heparin VIAL(*) 5000 UNITS/ML VIAL (FIVE THOUSAND) SUBCUT SCH ×2 (05:13→13:36)
[2016-05-09] MEDS: Tiotropium CAP.INH* CAP.INH/18 MCG (USE ORDER SET !) INH SCH (07:29)
[2016-05-09] MEDS: Mometasone/Formoter 200/5 MDI INH SCH (07:29)
[2016-05-09] MEDS: Atorvastatin* 20 MG TAB PO SCH (08:38)
[2016-05-09] MEDS: Omeprazole CAP* 20 MG PO SCH (08:38)
[2016-05-09] MEDS: Ferrous Sulfate TAB* 325 MG PO SCH (08:38)
[2016-05-09] MEDS: oxyCODONE/Acetamin 5/325 MG* TAB PO PRN ×2 (08:38→13:36)
[2016-05-09] MEDS: Divalproex Sprinkle CAP* 125 MG PO SCH ×2 (08:39→13:38)
[2016-05-09] MEDS: Nicotine PATCH 21 MG/24 HR* PATCH TRANSDERM SCH (08:39)
[2016-05-09] MEDS: Montelukast Sodium TAB* 10 MG PO SCH (08:39)
[2016-05-09] MEDS: guaiFENesin ER TAB 600 MG PO SCH (08:39)
[2016-05-09] MEDS: Sucralfate TAB* 1 GM PO SCH (08:39)
[2016-05-09 10:23] VITALS: BP 117/71
--- NOTE | 2016-05-09 22:28 | DS ---
DISCHARGE SUMMARY: DATE OF ADMISSION: 05/03/16 DATE OF DISCHARGE: 05/09/16 PRIMARY DIAGNOSIS: Acute respiratory failure with hypoxia. SECONDARY DIAGNOSES: 1. Chronic obstructive pulmonary disease exacerbation. 2. Seizure disorder. 3. History of peptic ulcer disease. 4. History of GI hemorrhage in 2003. 5. Gastroesophageal reflux disease. 6. Chronic back pain. 7. Fibromyalgia. 8. Hyperlipidemia. MEDICATIONS ON DISCHARGE: 1. Pantoprazole 40 mg p.o. b.i.d. 2. Valproic acid 250 mg p.o. t.i.d. 3. Oxycodone/acetaminophen 5/325 two tabs p.o. t.i.d. p.r.n. 4. Spiriva Respimat 1 inhalation daily. 5. Sucralfate 1 g p.o. b.i.d. with meals. 6. Ferrous sulfate 65 mg p.o. daily. 7. Cyclobenzaprine 10 mg p.o. q.8 hours p.r.n. spasm. 8. Lipitor 20 mg p.o. q.h.s. 9. Albuterol inhaler 2 inhalations q.6 hours p.r.n. wheezing. 10. Prednisone 50 mg p.o. daily for 5 days and a taper by 10 mg every 2 days until stopped. 11. Mucinex ER 1200 mg p.o. b.i.d. 12. Nicotine patch 21 mg topically daily. 13. Singulair 10 mg p.o. daily. 14. Dulera 200/5 two inhalations twice a day. 15. Lorazepam 1 mg p.o. q.6 hours p.r.n. anxiety. 16. Benzonatate 200 mg p.o. t.i.d. p.r.n. cough. 17. Albuterol nebulizer 2.5 mg inhaled by nebulizer q.4 hours p.r.n. HOSPITAL COURSE: The patient was admitted to the emergency department with an episode of significant chest tightness, respiratory distress, and hemoptysis. The patient was admitted to intensive care unit and placed on frequent nebulizers, Solu- Medrol, and azithromycin. The patient was followed by the staffing program manager, Dr. Saucedo, because of acute respiratory failure requiring BiPAP treatment. The patient improved with antibiotics, steroids, and nebulizers and was transferred to the floor on 05/07/16. Initial chest x-ray showed no infiltrates and subsequent chest x-ray did also show no infiltrates. The patient had some swelling of his left arm and had a left upper extremity venous Doppler, which was negative for DVT. Laboratory data during the hospital stay showed initial white count of 12.0 which brenda to 21.5 with steroid use, initial hematocrit was 45% which fell to 36% slowly over the hospital course. The patient's D-dimer is less than 200. Blood gas initially showed pH 7.43, PCO2 41 , PO2 145. He also had a lactic acid of 6.6 on admission which fell to 4.2 on 3 -hour recheck. His troponin initially was 0.89, brenda to 0.90 and down to 0.5 on the day of discharge. The elevated troponin was thought to be due to chronic ischemia as his EKG showed sinus tachycardia without ischemia. An outpatient stress test would be reasonable next step. He did have a transthoracic echocardiogram on 05/04/16 that showed ejection fraction of 50% to 55% and normal diastolic function. No significant valvular abnormalities. The patient progressed to be ambulating with oxygen at 2 L. He finished a 5- day course of IV azithromycin and is not sent home on any oral antibiotics. He was started on treatment for smoking cessation as well as broader treatment of COPD with nebulizer, continued Spiriva, addition of inhaled long-acting beta agonist and corticosteroids. DISPOSITION: To home with oxygen nebulizer to use as tolerated. DIET: Regular diet and low fat. The patient is to follow up with Dr. Saunders within a week for followup. [id number]/[facility] #: [id number] [place]
== END 2016-05-09 17:30 | disposition home or self-care (01) | DRG 133 ==
LOC: ED 21:10 → MED 23:52 → ICU 05-04 06:42 → MEDTELE 05-07 11:08
PROVIDERS: ADMIT Internal Medicine; ATTEND Internal Medicine
PROC: 5A09457 Assistance with Respiratory Ventilation, 24-96 Consecutive Hours, Continuous Positive Airway Pressure (ICD-10-PCS; principal; 2016-05-03)
DX: J96.01 Acute respiratory failure with hypoxia (principal); I24.8 Other forms of acute ischemic heart disease; E87.2 Acidosis; J45.902 Unspecified asthma with status asthmaticus; K27.9 Peptic ulcer, site unspecified, unspecified as acute or chronic, without hemorrhage or perforation; J44.1 Chronic obstructive pulmonary disease with (acute) exacerbation; G40.909 Epilepsy, unspecified, not intractable, without status epilepticus; K21.9 Gastro-esophageal reflux disease without esophagitis; M79.7 Fibromyalgia; E78.5 Hyperlipidemia, unspecified; M51.36 Other intervertebral disc degeneration, lumbar region; F17.210 Nicotine dependence, cigarettes, uncomplicated; R74.8 Abnormal levels of other serum enzymes; Z96.641 Presence of right artificial hip joint; Z88.0 Allergy status to penicillin; Z79.899 Other long term (current) drug therapy
CPT/HCPCS: 36415; 36600; 71010; 80048; 80053; 80164; 82803; 83605; 83735; 83880; 84100; 84484; 84520; 85025; 85027; 85379; 85730; 87040; 90732; 93005; 93306; 94640; 94660; 94760; 99285; A9270-GY; C8929; J0456; J1170; J1644; J2060; J2270; J2920; J7512

== ENCOUNTER 2016-05-28 11:45 | Observation (INO) | payer OTHER ==
[~2016-05-28 11:45] MED LIST: Omeprazole CAP* 20 MG PO SCH
[2016-05-28] MEDS ORDERED: Albuterol/Ipratropium NEB.SOL* Albuterol 2.5 MG/Ipratropium 0.5 MG 3 ML INH ONE (12:24)
[2016-05-28] MEDS ORDERED: methylPREDNISolone 125 MG* 2 ML VIAL IV ONE (12:24)
[2016-05-28 12:47] LABS: Hematocrit 40 % (42-52); Hemoglobin 13.6 g/dl (14.0-18.0); Mean Corpuscular HGB Conc 34 g/dl (31-36); Mean Corpuscular Hemoglobin 35 pg (27-31); Mean Corpuscular Volume 104 fL (80-94); Mean Platelet Volume 9 um3 (7.4-10.4); Red Blood Count 3.87 10^6/ul (4.0-5.4); Red Cell Distribution Width 13 % (10.5-15); White Blood Count 6.9 10^3/ul (3.5-10.8)
[2016-05-28 12:59] LABS: Albumin 4.2 g/dL (3.2-5.2); BUN/Creatinine Ratio 10.1 (8-20); Calcium 9.3 mg/dL (8.6-10.3); EGFR African American 131.4 (>60); EGFR Non-African American 102.2 (>60); Globulin 2.7 g/dL (2-4); Potassium 3.9 mmol/L (3.5-5.0); Total Bilirubin 0.5 mg/dL (0.2-1.0); Total Protein 6.9 g/dL (6.4-8.9)
[2016-05-28 13:00] LABS: Troponin I 0.01 ng/mL (<0.04)
--- NOTE | 2016-05-28 13:42 | RAD ---
Indication: Shortness of breath. Single frontal view of the chest performed at 1324 hours was reviewed. Comparison is made with previous exam dated May 05, 2016. No mediastinal shift is noted. Heart is of normal size and configuration. Lung earl appear clear. IMPRESSION: NO ACTIVE CARDIOPULMONARY DISEASE IS NOTED.
[2016-05-28] MEDS ORDERED: Albuterol/Ipratropium NEB.SOL* Albuterol 2.5 MG/Ipratropium 0.5 MG 3 ML INH PRN (17:48)
[2016-05-28] MEDS ORDERED: Benzonatate CAP* 100 MG PO PRN (17:53)
[2016-05-28] MEDS ORDERED: LORazepam TAB(*) 1 MG PO PRN (17:53)
[2016-05-28] MEDS ORDERED: Cyclobenzaprine TAB* 10 MG PO PRN (17:53)
[2016-05-28] MEDS ORDERED: Nicotine PATCH 21 MG/24 HR* PATCH TRANSDERM SCH (18:00)
[2016-05-28] MEDS ORDERED: Ondansetron INJ* 2 MG/ML VIAL IV PRN (18:00)
[2016-05-28] MEDS ORDERED: Omeprazole CAP* 20 MG PO SCH (18:12)
[2016-05-28] MEDS: Mometasone/Formoter 200/5 MDI INH SCH (20:30)
[2016-05-28] MEDS ORDERED: Nicotine Patch Removal NOTE PATCH OFF SCH (21:00)
[2016-05-28] MEDS: guaiFENesin ER TAB 600 MG PO SCH (21:46)
[2016-05-28] MEDS: Divalproex DR TAB(*) 250 MG PO SCH (21:46)
[2016-05-28] MEDS: DOXYcycline CAP(*) 100 MG PO SCH (21:47)
[2016-05-28] MEDS: Heparin VIAL(*) 5000 UNITS/ML VIAL (FIVE THOUSAND) SUBCUT SCH (21:48)
[2016-05-28] MEDS: NS 0.9% 1000 ML* 1,000 ML IV SCH (22:04)
--- NOTE | 2016-05-28 22:40 | HP ---
HOSPITAL MEDICINE HISTORY AND PHYSICAL: DATE OF ADMISSION: 05/28/16 PRIMARY CARE PHYSICIAN: Mari Saunders MD ATTENDING PHYSICIAN: Nitza Delarosa MD *(dictation provided by Danita Abarca NP) CHIEF COMPLAINT: Shortness of breath and cough. HISTORY OF PRESENT ILLNESS: Mr. Garcia is a 56-year-old male with a past medical history of COPD with recent admission for COPD exacerbation, was discharged from our hospital on 05/09/16, who returns today with concern for shortness of breath and cough. Mr. Garcia states he was feeling better at the time of discharge on May 09. He states that he had felt weak and somewhat deconditioned, but that his breathing was much better. However, in the past 7 days, he has become more short of breath. He has had increasing cough. He has had no sputum production. He has had a fever up to 100. He also reports vomiting, which is a new symptom. He states he has vomited 2 or 3 times per day. It does not seem to have any pattern. He has been able to tolerate oral intake at times. There is no abdominal pain. There is no diarrhea. He states his last formed bowel movement was yesterday. In the emergency room, Mr. Garcia had a chest x-ray, which showed no acute abnormality. He had no fever. His vital signs just showed a mild tachycardia with a heart rate running up to 110. His blood pressure is stable. He is currently maintaining an O2 saturation of greater than 95% on room air; however , he does have a lactic acid elevated to 3.5. PAST MEDICAL HISTORY: 1. COPD. 2. Peptic ulcer disease. 3. GI hemorrhage, 2003. 4. GERD. 5. Chronic back pain. 6. 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 7. Fibromyalgia. 8. Seizure disorder. 9. History of right cataract extraction. 10. Right hip arthroplasty. 11. Hiatal hernia repair. MEDICATIONS: 1. Albuterol via nebulizer inhaled p.r.n. 2. Albuterol via metered dose inhaler p.r.n. 3. Tiotropium 2.5 mcg inhaled daily. 4. Atorvastatin 20 mg p.o. daily. 5. Benzonatate 200 mg p.o. t.i.d. p.r.n. 6. Cyclobenzaprine 10 mg p.o. q.8 hours p.r.n. 7. Depakote 250 mg p.o. t.i.d. 8. Ferrous sulfate 325 mg p.o. daily. 9. Lorazepam 1 mg p.o. q.6 hours p.r.n. 10. Mometasone/formoterol 200/5 mcg 2 puffs inhaled b.i.d. 11. Montelukast 10 mg p.o. daily. 12. Nicotine patch 21 mg 1 patch transdermally q.24 hours. 13. Pantoprazole 40 mg p.o. b.i.d. 14. Sucralfate 1 g p.o. b.i.d. with meals. 15. Guaifenesin ER 1200 mg p.o. b.i.d. ALLERGIES: PENICILLIN. FAMILY HISTORY: The patient states that his mother at 67 of lymphoma and the father at 72 of stomach cancer. SOCIAL HISTORY: The patient states he quit smoking and has had only 2 or 3 cigarettes since leaving the hospital. His last cigarette was about 5 days ago. He is currently on a nicotine patch. He denies any significant alcohol use. There is no report of drug use. The patient states his health care proxy would be his girlfriend, Deanne Healy. REVIEW OF SYSTEMS: A 14-point review of systems was completed with Mr. Garcia and all those mentioned above were negative. PHYSICAL EXAMINATION GENERAL: Mr. Garcia is sitting in the bed. He is in no acute distress. He is calm and cooperative to my examination. VITAL SIGNS: Temperature 98.0, heart rate 110, respiratory rate 20, O2 saturation 99% on 2 L nasal cannula, and blood pressure 128/84. LUNGS: Clear to auscultation bilaterally with no accessory muscle use and good aeration. HEART: S1, S2. No murmur, rub, or gallop and regular. ABDOMEN: Soft and nontender with bowel sounds positive x4. EXTREMITIES: No cyanosis or edema. NEUROLOGIC: He is alert and oriented x3. He moves all extremities equally. There is no facial asymmetry or focal weakness. Extraocular movements are intact. SKIN: Intact. DIAGNOSTIC STUDIES/LAB DATA: Sodium 136, potassium 3.9, chloride 103, serum bicarbonate 24, BUN 8, creatinine 0.79, glucose 101, and lactic acid 3.5. Troponin 0.01. WBC 6.9, hemoglobin 13.6, hematocrit 40, and platelet count 230. Chest x-ray shows no acute process. EKG shows sinus rhythm with no evidence of ischemia. ASSESSMENT: Mr. Garcia is a 56-year-old male with past medical history of chronic obstructive pulmonary disease who was admitted to our hospital and discharged on 05/09/16 after treatment for chronic obstructive pulmonary disease exacerbation requiring BiPAP and ICU admission. He returns to the hospital today with concern for shortness of breath and cough and chronic obstructive pulmonary disease exacerbation. He also has nausea. Our plans are as follows: 1. Chronic obstructive pulmonary disease exacerbation: The patient appears to have a very mild exacerbation, but I am concerned that his lactic acid is elevated to 3.5. He certainly does not have any need for BiPAP. Our plans will be to observe him overnight. He will have oxygen available p.r.n. He will have duo nebulizers available p.r.n. He will be treated with prednisone 60 mg p.o. daily and doxycycline 100 mg p.o. b.i.d. 2. Vomiting: It is unclear what is driving the vomiting. The patient states that he has had some chronic issues with that as he has had ongoing issues with ulcerations in his abdomen for many many years and chronic GI upset. Plan will be to observe and he can have Zofran available p.r.n. It could be that his lactic acid elevation is related to his nausea with some mild dehydration. Plan is to give him a liter of IV fluids and then recheck the lactic acid. 3. History of peptic ulcer disease: Plan to continue home medications. 4. Question of seizure disorder: Continue home divalproex. 5. DVT prophylaxis: The patient will have heparin subcu. 6. Disposition: To medical floor. TIME SPENT: Approximately 60 minutes was spent in the admission of this patient , more than half of the time was spent with the patient at the bedside reviewing the events leading up to this hospitalization, performing the physical examination, and reviewing my plan of care. DANITA ABARCA NP CC: Dr. Saunders* [id number]/[facility] #: [id number] [place]
[2016-05-29] MEDS: NS 0.9% 1000 ML* 1,000 ML IV SCH (04:48)
[2016-05-29] MEDS: Heparin VIAL(*) 5000 UNITS/ML VIAL (FIVE THOUSAND) SUBCUT SCH (04:58)
[2016-05-29] MEDS ORDERED: Sucralfate TAB* 1 GM PO SCH (08:00)
[2016-05-29] MEDS ORDERED: predniSONE TAB* 20 MG PO SCH (08:30)
[2016-05-29] MEDS ORDERED: Ferrous Sulfate TAB* 325 MG PO SCH (09:00)
[2016-05-29] MEDS ORDERED: Montelukast Sodium TAB* 10 MG PO SCH (09:00)
[2016-05-29] MEDS ORDERED: Atorvastatin* 20 MG TAB PO SCH (09:00)
[2016-05-29] MEDS ORDERED: Nicotine PATCH 21 MG/24 HR* PATCH TRANSDERM SCH (09:00)
[2016-05-29] MEDS: guaiFENesin ER TAB 600 MG PO SCH (09:06)
[2016-05-29] MEDS: Divalproex DR TAB(*) 250 MG PO SCH (09:07)
[2016-05-29] MEDS: DOXYcycline CAP(*) 100 MG PO SCH (09:07)
[2016-05-29] MEDS ORDERED: oxyCODONE/Acetamin 5/325 MG* TAB PO PRN (09:16)
[2016-05-29] MEDS: Mometasone/Formoter 200/5 MDI INH SCH (09:22)
[2016-05-29 10:05] VITALS: BP 119/66
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
--- NOTE | 2016-05-29 11:57 | PN ---
Subjective Date of Service: 05/29/16 Interval History: Mr. Garcia states that he is feeling much better and is eager for discharge to home. Objective Active Medications: Albuterol/Ipratropium (Duoneb (Albuterol 2.5 Mg/Ipratropium 0.5 Mg)) 1 neb INH Q4H PRN Atorvastatin Calcium (Lipitor*) 20 mg PO DAILY [facility] Benzonatate (Tessalon Cap*) 200 mg PO TID PRN Cyclobenzaprine HCl (Flexeril Tab*) 10 mg PO Q8HR PRN Divalproex Sodium (Depakote Dr Tab(*)) 250 mg PO TID [facility] Doxycycline Hyclate (Vibramycin Cap(*)) 100 mg PO BID [facility] Ferrous Sulfate (Ferrous Sulfate Tab*) 325 mg PO DAILY [facility] Guaifenesin (Mucinex*) 1,200 mg PO BID [facility] Heparin Sodium (Porcine) (Heparin Vial(*)) 5,000 units SUBCUT Q8HR [facility] Sodium Chloride (Ns 0.9% 1000 Ml*) 1,000 mls @ 150 mls/hr IV PER RATE [facility] Lorazepam (Ativan Tab(*)) 1 mg PO Q6H PRN Mometasone Furoate/Formoterol Fumar (Dulera 200/5 Mdi*) 2 puff INH BID [facility] Montelukast Sodium (Singulair Tab*) 10 mg PO DAILY [facility] Nicotine (Nicotine Patch 21 Mg/24 Hr*) 1 patch TRANSDERM Q24HR [facility] Omeprazole (Prilosec Cap*) 20 mg PO Q24H [facility] Ondansetron HCl (Zofran Inj*) 4 mg IV Q4H PRN Oxycodone/Acetaminophen (Percocet 5/325 Tab*) 1 tab PO Q4H PRN Pharmacy Profile Note (Nicotine Patch Removal Note*) 1 note PATCH OFF 2100 [facility] Prednisone (Deltasone Tab*) 60 mg PO DAILY WITH MEAL [facility] Sucralfate (Carafate*) 1 gm PO BID WITH MEALS [facility] Vital Signs 05/28/16 05/28/16 05/28/16 15:00 16:31 18:00 Temperature 98.0 F Pulse Rate 101 110 Respiratory 20 20 20 Rate Blood Pressure 115/73 128/84 (mmHg) O2 Sat by Pulse 95 99 Oximetry 05/28/16 05/28/16 05/28/16 18:10 18:30 19:22 Temperature 97.6 F Pulse Rate 109 103 Respiratory 16 20 16 Rate Blood Pressure 123/67 (mmHg) O2 Sat by Pulse 97 97 Oximetry 05/28/16 05/28/16 05/29/16 20:30 20:33 00:07 Temperature 98.0 F Pulse Rate 109 109 Respiratory 18 16 16 Rate Blood Pressure 143/71 (mmHg) O2 Sat by Pulse 98 97 Oximetry 05/29/16 05/29/16 05/29/16 05:10 07:21 08:00 Temperature Pulse Rate 92 Respiratory 16 18 16 Rate Blood Pressure 134/70 (mmHg) O2 Sat by Pulse 98 98 Oximetry 05/29/16 05/29/16 05/29/16 08:21 09:26 10:00 Temperature 97.5 F Pulse Rate 95 100 Respiratory 16 16 16 Rate Blood Pressure 119/66 (mmHg) O2 Sat by Pulse 99 99 Oximetry Oxygen Devices in Use Now: Nasal Cannula Appearance: Male sitting up in bed in NAD Respiratory: Symmetrical Chest Expansion and Respiratory Effort, Clear to Auscultation Cardiovascular: NL Sounds; No Murmurs; No JVD, No Edema Abdominal: NL Sounds; No Tenderness; No Distention Extremities: No Edema Skin: No Rash or Ulcers Neurological: Alert and Oriented x 3, NL Muscle Strength and Tone Nutrition: Taking PO's Result Diagrams: 05/28/16 12:10 05/28/16 12:10 Additional Lab and Data: Lab Results 05/28/16 05/28/16 05/28/16 Range/Units 12:10 12:10 12:10 WBC 6.9 (3.5-10.8) 10^3/ul RBC 3.87 L (4.0-5.4) 10^6/ul Hgb 13.6 L (14.0-18.0) g/dl Hct 40 L (42-52) % MCV 104 H (80-94) fL MCH 35 H (27-31) pg MCHC 34 (31-36) g/dl RDW 13 (10.5-15) % Plt Count 230 (150-450) 10^3/ul MPV 9 (7.4-10.4) um3 Neut % (Auto) 62.8 (38-83) % Lymph % (Auto) 27.2 (25-47) % [place] % (Auto) 7.7 (1-9) % Eos % (Auto) 2.0 (0-6) % Baso % (Auto) 0.3 (0-2) % Absolute Neuts (auto) 4.4 (1.5-7.7) 10^3/ul Absolute Lymphs (auto) 1.9 (1.0-4.8) 10^3/ul Absolute Monos (auto) 0.5 (0-0.8) 10^3/ul Absolute Eos (auto) 0.1 (0-0.6) 10^3/ul Absolute Basos (auto) 0 (0-0.2) 10^3/ul Absolute Nucleated RBC 0 10^3/ul Nucleated RBC % 0 Sodium 136 (133-145) mmol/L Potassium 3.9 (3.5-5.0) mmol/L Chloride 103 (101-111) mmol/L Carbon Dioxide 24 (22-32) mmol/L Anion Gap 9 (2-11) mmol/L BUN 8 (6-24) mg/dL Creatinine 0.79 (0.67-1.17) mg/dL Est GFR ( Amer) 131.4 (>60) Est GFR (Non-Af Amer) 102.2 (>60) BUN/Creatinine Ratio 10.1 (8-20) Glucose 101 H (70-100) mg/dL Lactic Acid 3.5 H* (0.5-2.0) mmol/L Calcium 9.3 (8.6-10.3) mg/dL Total Bilirubin 0.50 (0.2-1.0) mg/dL AST 15 (13-39) U/L ALT 26 (7-52) U/L Alkaline Phosphatase 53 (34-104) U/L Troponin I 0.01 (<0.04) ng/mL Total Protein 6.9 (6.4-8.9) g/dL Albumin 4.2 (3.2-5.2) g/dL Globulin 2.7 (2-4) g/dL Albumin/Globulin Ratio 1.6 (1-3) Microbiology and Other Data: Microbiology 05/28/16 18:15 Nasal Screen MRSA (PCR)(FRANDY) - Final Nasal Mrsa Positive Assess/Plan/Problems-Billing Assessment: Mr. Garcia is a 56 yo male with a PMH of COPD who was admitted on 05/27/16 with a COPD exacerbation. - Patient Problems (1) COPD exacerbation Comment: Much improved. Continue Prednisone, doxycycline, nebs and O2 at night and with activity. Status and Disposition: Discharge to home. Patient is to continue all other home medications per routine. Follow up with Dr. Saunders in 5-7 days.
--- NOTE | 2016-05-30 03:28 | DS ---
[facility] MEDICINE DISCHARGE SUMMARY: DATE OF ADMISSION: 05/28/16 DATE OF DISCHARGE: 05/29/16 PRIMARY CARE PHYSICIAN: Mari Saunders MD ATTENDING PHYSICIAN: Dion De Leon MD*(dictation provided by Danita Abarca NP) . PRIMARY DIAGNOSIS: Chronic obstructive pulmonary disease exacerbation. SECONDARY DIAGNOSES: 1. Peptic ulcer disease. 2. Gastrointestinal hemorrhage, 2003. 3. Gastroesophageal reflux disease. 4. Chronic back pain. 5. 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 6. Fibromyalgia. 7. Seizure disorder. 8. History of right cataract extraction. 9. Right hip arthroplasty. 10. Hiatal hernia repair. MEDICATIONS AT THE TIME OF DISCHARGE: 1. Prednisone via taper. 2. Doxycycline 100 mg p.o. b.i.d. x6 days. 3. Albuterol via nebulizer inhaled p.r.n. 4. Albuterol via metered dose inhaler p.r.n. 5. Tiotropium 2.5 mcg inhaled daily. 6. Atorvastatin 20 mg p.o. daily. 7. Benzonatate 200 mg p.o. t.i.d. p.r.n. 8. Cyclobenzaprine 10 mg p.o. q.8 hours p.r.n. 9. Depakote 250 mg p.o. t.i.d. 10. Ferrous sulfate 325 mg p.o. daily. 11. Lorazepam 1 mg p.o. q.6 hours p.r.n. 12. Mometasone/formoterol 200/5 mcg 2 puffs inhaled b.i.d. 13. Montelukast 10 mg p.o. daily. 14. Nicotine patch 21 mg transdermally q.24 hours. 15. Pantoprazole 40 mg p.o. b.i.d. 16. Sucralfate 1 g p.o. b.i.d. with meals. 17. Guaifenesin ER 1200 mg p.o. b.i.d. HOSPITAL COURSE: Mr. Garcia is a 56-year-old male presented to the emergency room on 05/28/16 with concern for shortness of breath and cough. Please see the dictated H and P from myself for complete details. In brief, the patient had been admitted to our hospital and discharged on 05/09/16 after COPD exacerbation requiring ICU admission. The patient stated that he was feeling well at the time of discharge and only started to feel unwell about 7 days prior to this admission. He described shortness of breath and cough. In the emergency room, he had an O2 saturation greater than 95% on room air at rest. However, he did have elevated lactic acid and concern for COPD exacerbation. The patient was placed on observation in the hospital. He was treated with prednisone, doxycycline, nebulizer treatments and oxygen. With this, he states his breathing is much better this morning and he felt safe for discharge to home. His lactic acid was repeated after intravenous fluids and with treatment of his COPD. Despite this, his lactic acid did remain elevated. I noticed that from his previous admission, it also persisted during the entire time of the admission, I do not have a clear explanation for this, but I note that the patient is very clinically extremely stable with no acute issues and he is breathing easily on room air without shortness of breath or cough. He shows no evidence of sepsis. He is afebrile. He has only had very mild tachycardia with heart rate running about 100 during the admission. His blood pressure is stable. I think he is medically stable for discharge to home. I have instructed Mr. Garcia to follow up with Dr. Saunders in the office in the next 5 to 7 days for ongoing monitoring of COPD given 2 recent hospitalizations. DISPOSITION: To home. DIET: Regular. ACTIVITY: As tolerated. FOLLOWUP PLANS: Please follow up with Dr. Saunders in the next 5 to 7 days. Please call for an appointment on Tuesday. TIME SPENT: Approximately 60 minutes were spent on the discharge of this patient, more than half the time spent with him at the bedside reviewing the events leading up to this hospitalization, performing the physical examination, and reviewing the plan of care. DANITA ABARCA NP CC: Mari Saunders MD* [id number]/[facility] #: [id number] DWIGHT
== END 2016-05-29 12:20 | disposition home or self-care (01) ==
LOC: ED 11:45 → MED 14:39
PROVIDERS: ADMIT Internal Medicine; ATTEND Internal Medicine
DX: J44.1 Chronic obstructive pulmonary disease with (acute) exacerbation (principal); R11.10 Vomiting, unspecified; K27.9 Peptic ulcer, site unspecified, unspecified as acute or chronic, without hemorrhage or perforation; K21.9 Gastro-esophageal reflux disease without esophagitis; G40.909 Epilepsy, unspecified, not intractable, without status epilepticus; M79.7 Fibromyalgia; M47.9 Spondylosis, unspecified; M16.10 Unilateral primary osteoarthritis, unspecified hip; R50.9 Fever, unspecified; R05 Cough; R60.0 Localized edema; F17.210 Nicotine dependence, cigarettes, uncomplicated; R00.0 Tachycardia, unspecified
CPT/HCPCS: 36415; 71010; 80053; 83605; 84484; 85025; 87040; 87641; 93005; 94640; 94760; 96361; 96372; 96374; 99291; A9270-GY; G0378; J1644; J2930; J7512

== ENCOUNTER 2016-06-18 15:37 | Emergency (ER) | payer OTHER ==
--- NOTE | 2016-06-18 16:54 | RAD ---
INDICATION: Short of breath COMPARISON: May 28, 2016;; chest x-ray February 19, 2015 chest x-ray February 18, 2009 TECHNIQUE: An AP portable view obtained at 1630 hours is submitted. FINDINGS: Bones/Soft Tissues: There are no acute bony findings. Cardiomediastinal: The cardiomediastinal silhouette is normal. Lungs: There are no infiltrates. There is probable right upper lobe granuloma, unchanged. Pleura: There are no pleural effusions. Other: None IMPRESSION: NO ACTIVE DISEASE.
[2016-06-18 17:06] LABS: Hematocrit 41 % (42-52); Mean Corpuscular HGB Conc 34 g/dl (31-36); Mean Corpuscular Hemoglobin 35 pg (27-31); Mean Corpuscular Volume 104 fL (80-94); Mean Platelet Volume 8 um3 (7.4-10.4); Red Blood Count 3.96 10^6/ul (4.0-5.4); Red Cell Distribution Width 13 % (10.5-15); White Blood Count 11.2 10^3/ul (3.5-10.8)
[2016-06-18 17:11] LABS: Albumin 4.3 g/dL (3.2-5.2); BUN/Creatinine Ratio 12.9 (8-20); Calcium 9.4 mg/dL (8.6-10.3); EGFR African American 120.8 (>60); EGFR Non-African American 93.9 (>60); Globulin 2.7 g/dL (2-4); Potassium 3.7 mmol/L (3.5-5.0); Total Bilirubin 0.5 mg/dL (0.2-1.0)
[2016-06-18 17:13] LABS: Troponin I 0.01 ng/mL (<0.04)
[2016-06-18] MEDS ORDERED: methylPREDNISolone SOD SUCC* 125 MG 2 ML VIAL IV ONE (18:03)
[2016-06-18] MEDS ORDERED: Albuterol/Ipratropium NEB.SOL* Albuterol 2.5 MG/Ipratropium 0.5 MG 3 ML INH ONE (18:03)
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
[2016-06-18] MEDS ORDERED: Clarithromycin TAB* 500 MG PO ONE ×2 (21:00→22:00)
[2016-06-18 22:35] VITALS: BP 131/87
== END 2016-06-18 21:30 | disposition home or self-care (01) ==
LOC: ED 15:37
DX: J44.1 Chronic obstructive pulmonary disease with (acute) exacerbation (principal); R06.02 Shortness of breath; R05 Cough; R11.10 Vomiting, unspecified; R50.9 Fever, unspecified; M79.1 Myalgia
CPT/HCPCS: 36415; 71010; 80053; 83605; 83880; 84484; 85025; 85379; 93005; 94640; 96374; 99283; A9270-GY; J2930

== ENCOUNTER 2016-12-13 14:05 | Emergency (ER) | payer MEDICAID, OTHER ==
[2016-12-13] MEDS ORDERED: Albuterol/Ipratropium NEB.SOL* Albuterol 2.5 MG/Ipratropium 0.5 MG 3 ML INH ONE (17:12)
[2016-12-13 17:51] LABS: Hematocrit 41 % (42-52); Hemoglobin 13.9 g/dl (14.0-18.0); Mean Corpuscular HGB Conc 34 g/dl (31-36); Mean Corpuscular Hemoglobin 35 pg (27-31); Mean Corpuscular Volume 102 fL (80-94); Mean Platelet Volume 8 um3 (7.4-10.4); Red Blood Count 3.97 10^6/ul (4.0-5.4); Red Cell Distribution Width 13 % (10.5-15); White Blood Count 8.3 10^3/ul (3.5-10.8)
--- NOTE | 2016-12-13 18:03 | RAD ---
INDICATION: Cough and shortness of breath x1 week COMPARISON: Chest x-ray dated June 18, 2016. TECHNIQUE: PA and lateral views of the chest were obtained. FINDINGS: The heart and mediastinum are normal in size and contour. The lungs are grossly clear. There is no evidence of large pleural effusion. Visualized bones are normal for the patient's age. There is no radiographic evidence of free air beneath the diaphragm IMPRESSION: No radiographic evidence of acute cardiopulmonary disease.
[2016-12-13 18:07] LABS: Troponin I 0.02 ng/mL (<0.04)
[2016-12-13 18:09] LABS: Albumin 3.9 g/dL (3.2-5.2); BUN/Creatinine Ratio 5.2 (8-20); Calcium 9.1 mg/dL (8.6-10.3); EGFR African American 187.8 (>60); Potassium 3.4 mmol/L (3.5-5.0); Total Bilirubin 0.6 mg/dL (0.2-1.0); Total Protein 6.9 g/dL (6.4-8.9)
[2016-12-13] MEDS ORDERED: Clarithromycin TAB* 500 MG PO ONE (19:45)
[2016-12-13] MEDS ORDERED: predniSONE TAB* 20 MG PO ONE (19:45)
[2016-12-13 20:16] VITALS: BP 113/67
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
== END 2016-12-13 20:29 | disposition home or self-care (01) ==
LOC: ED 14:05
DX: J44.9 Chronic obstructive pulmonary disease, unspecified (principal); F17.210 Nicotine dependence, cigarettes, uncomplicated; Z88.0 Allergy status to penicillin; K21.9 Gastro-esophageal reflux disease without esophagitis
CPT/HCPCS: 36415; 71020; 80053; 83605; 83880; 84484; 85025; 93005; 94640; 99284; A9270-GY; J7512

== ENCOUNTER 2017-06-16 12:02 | Emergency (ER) | payer MEDICAID, OTHER ==
[2017-06-16] MEDS ORDERED: HYDROcodone/ACETAMIN 5-325 MG* 1 TAB PO ONE (13:18)
--- NOTE | 2017-06-16 14:05 | RAD ---
HISTORY: Fall, low back pain, left leg pain COMPARISONS: None VIEWS: 3, Frontal view of the pelvis with frontal and frog-leg views of the left hip FINDINGS: BONE DENSITY: Normal. BONES: There is no displaced fracture. JOINTS: There is mild osteoarthritis of the hip and AC joint. ALIGNMENT: There is no dislocation. SOFT TISSUES: Unremarkable. OTHER FINDINGS: Degenerative changes are noted in the spine. IMPRESSION: OSTEOARTHRITIS. NO RADIOGRAPHIC EVIDENCE FOR HIP FRACTURE. X-RAYS MAY BE NEGATIVE WITH NONDISPLACED HIP FRACTURE, IF THERE IS PERSISTENT CLINICAL CONCERN, RECOMMEND CONSIDERATION OF MRI. IN THE SETTING OF CONTRAINDICATION TO MRI OR LIMITATION IN EMERGENT ACCESS TO MRI, CT WOULD BE SUGGESTED.
--- NOTE | 2017-06-16 14:08 | RAD ---
Indication: Lower back region pain post fall. Swelling at the LEFT lower posterior flank. Comparison: June 07, 2015 CT Technique: AP, lateral, and oblique views lumbar sacral spine. Report: Alignment is anatomic. No cortical disruption or trabecular impaction to indicate a vertebral body fracture. Oblique views without evidence for spondylolysis. Minimal multilevel vertebral endplate osteophytosis. Mild L3-L4, mild L4-L5, and moderate L5-S1 disc space narrowing. Facet joint osteoarthritis most prominent at L4-L5 and L5-S1. Peripheral vascular calcifications. Unremarkable soft tissue contours. IMPRESSION: Negative for fracture or traumatic malalignment. No significant interval change in degenerative spondylosis and facet joint osteoarthritis.
[2017-06-16 15:06] VITALS: BP 121/68
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
== END 2017-06-16 15:05 | disposition home or self-care (01) ==
LOC: ED 12:02
DX: S70.02XA Contusion of left hip, initial encounter (principal); M54.2 Cervicalgia; F17.210 Nicotine dependence, cigarettes, uncomplicated; W00.9XXA Unspecified fall due to ice and snow, initial encounter; Y92.9 Unspecified place or not applicable
CPT/HCPCS: 72110; 99281

== ENCOUNTER 2018-08-26 14:29 | Emergency (ER) | payer OTHER ==
[2018-08-26] MEDS ORDERED: oxyCODONE/Acetamin 5/325 MG* TAB PO ONE (15:03)
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
[2018-08-26 15:56] LABS: ABS Basophils 0.1 10^3/ul (0-0.2); ABS Eosinophils 0.2 10^3/ul (0-0.6); ABS Lymphocytes 2.2 10^3/ul (1.0-4.8); ABS Monocytes 0.6 10^3/ul (0-0.8); ABS Neutrophils 4.9 10^3/ul (1.5-7.7); Hematocrit 43 % (42-52); Hemoglobin 14.8 g/dL (14.0-18.0); Lymphocyte % 27.7 %; Mean Corpuscular HGB Conc 35 g/dL (31-36); Mean Corpuscular Hemoglobin 36 pg (27-31); Mean Corpuscular Volume 103 fL (80-94); Mean Platelet Volume 8.3 fL (7.4-10.4); Platelet Count 193 10^3/uL (150-450); Red Blood Count 4.14 10^6 /uL (4.18-5.48); Red Cell Distribution Width 13 % (10-15)
[2018-08-26 16:14] LABS: Albumin 4.3 g/dL (3.2-5.2); Albumin/Globulin Ratio 1.6 (1-3); BUN/Creatinine Ratio 12.3 (8-20); C Reactive Protein 18.49 mg/L (<8.01); Calcium 9.6 mg/dL (8.6-10.3); EGFR African American 119.3 (>60); EGFR Non-African American 98.6 (>60); Globulin 2.7 g/dL (2-4); Potassium 3.9 mmol/L (3.5-5.0); Total Bilirubin 0.5 mg/dL (0.2-1.0); Uric Acid 5.7 mg/dL (4.4-7.6)
[2018-08-26 16:48] VITALS: BP 124/65
[2018-08-26 17:10] LABS: Erythrocyte Sed Rate 12 mm/Hr (0-19)
== END 2018-08-26 16:47 | disposition home or self-care (01) ==
LOC: ED 14:29
DX: M19.071 Primary osteoarthritis, right ankle and foot (principal); J44.9 Chronic obstructive pulmonary disease, unspecified; Z88.6 Allergy status to analgesic agent; Z88.0 Allergy status to penicillin; F17.210 Nicotine dependence, cigarettes, uncomplicated
CPT/HCPCS: 36415; 80053; 83605; 84550; 85025; 85652; 86140; 86618; 99282; A9270-GY

== ENCOUNTER 2018-09-03 13:59 | Emergency (ER) | payer OTHER ==
[2018-09-03] MEDS ORDERED: HYDROcodone/ACETAMIN 5-325 MG* 1 TAB PO ONE (15:48)
[2018-09-03] MEDS ORDERED: Cyclobenzaprine TAB* 10 MG PO ONE (15:48)
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
[2018-09-03 18:27] VITALS: BP 118/69
== END 2018-09-03 18:26 | disposition home or self-care (01) ==
LOC: ED 13:59
DX: S39.012A Strain of muscle, fascia and tendon of lower back, initial encounter (principal); X58.XXXA Exposure to other specified factors, initial encounter; M16.0 Bilateral primary osteoarthritis of hip; M47.9 Spondylosis, unspecified; F17.210 Nicotine dependence, cigarettes, uncomplicated; Z88.0 Allergy status to penicillin; Z88.8 Allergy status to other drugs, medicaments and biological substances
CPT/HCPCS: 72110; 99281; A9270-GY

== ENCOUNTER 2019-06-10 03:16 | Inpatient (IN) | payer OTHER ==
[2019-06-10] MEDS ORDERED: methylPREDNISolone 125 MG* 2 ML VIAL ONE (03:26)
[2019-06-10] MEDS ORDERED: Albuterol/Ipratropium NEB.SOL* Albuterol 2.5 MG/Ipratropium 0.5 MG 3 ML ONE (03:27)
[2019-06-10] MEDS ORDERED: Lorazepam PYXIS KEY ONE ×3 (03:29→06:05)
[2019-06-10] MEDS ORDERED: LORazepam INJ* 2 MG/ML 1 ML VIAL ONE ×2 (03:29→06:05)
[2019-06-10] MEDS ORDERED: Naloxone* 0.4 MG/ML 10 ML VIAL ONE (03:30)
[2019-06-10] MEDS ORDERED: Albuterol/Ipratropium NEB.SOL* Albuterol 2.5 MG/Ipratropium 0.5 MG 3 ML INH ONE (03:33)
[2019-06-10] MEDS ORDERED: NS 0.9% 1000 ML** 1,000 ML IV ONE ×3 (03:33→05:50)
[2019-06-10] MEDS ORDERED: Lorazepam PYXIS KEY PRN ×2 (03:35→06:34)
[2019-06-10] MEDS ORDERED: Naloxone* 0.4 MG/ML 1 ML VIAL IV PUSH ONE (03:35)
[2019-06-10] MEDS ORDERED: LORazepam INJ* 2 MG/ML 1 ML VIAL IV PUSH ONE ×2 (03:35→06:34)
--- NOTE | 2019-06-10 03:51 | ED ---
Shortness of Breath - HPI Summary HPI Summary: Patient is a 59 year-old male arriving via ambulance to [facility] with a chief complaint of shortness of breath worsening throughout the last day. He reports similar episode in the past without requirement for intubation. He developed shortness of breath that since progressively worsened. He denies chest pain, fevers, vomiting, or diarrhea. Symptoms rated 10/10 in severity. He continues to smoke, known emphysema and COPD. He is very anxious in the ED, yelling for help, agitated, unable to sit still. EMS reports the patient loss consciousness while at his home. Patient's O2 in 50s% upon arrival, improving to 80s% with BVM assisted ventilation. No recent travel. No recent illnesses. No known exposure to COVID-19. Current smoker, no EtOH, occasional substance use. Medications reviewed. Allergies noted. LEVEL 5 CAVEAT SECONDARY TO PATIENT'S AGITATION. - History of Current Complaint Time Seen by Provider: 06/10/19 03:33 Hx Obtained From: Patient, EMS Hx From Patient Unobtainable Due To: Other - Level 5 Caveat, patient agitated Onset/Duration: Gradual Onset, Still Present, Worse Since - today Current Severity: Severe Dyspnea At: Rest Aggravating Factors: Nothing Alleviating Factors: Nothing Associated Signs & Symptoms: Negative - Allergy/Home Medications Allergies/Adverse Reactions: Allergies Allergy/AdvReac Type Severity Reaction Status Date / Time Penicillins Allergy Severe Anaphylatic Verified 06/10/19 09:58 Shock Home Medications: Home Medications Unobtainable 06/10/19 [History Confirmed 06/10/19] PMH/Surg Hx/FS Hx/Imm Hx Endocrine/Hematology History: Denies: Hx Diabetes Respiratory History: Reports: Hx Chronic Obstructive Pulmonary Disease (COPD) - Surgical History Surgical History: None Surgery Procedure, Year, and Place: none Infectious Disease History: Denies: Traveled Outside the [place] in Last 30 Days - Family History Known Family History: Negative: Diabetes - Social History Alcohol Use: None Hx Substance Use: Yes Hx Tobacco Use: Yes Smoking Status (MU): Current Every Day Smoker - Additional Comments History Additional Comments: emphysema, COPD, current smoker Review of Systems Negative: Fever Negative: Chest Pain Positive: Shortness Of Breath Negative: Vomiting, Diarrhea All Other Systems Reviewed And Are Negative: No - Comments Additional Review of Systems Comments: LEVEL 5 CAVEAT SECONDARY TO PATIENT'S AGITATION Physical Exam - Summary Physical Exam Summary: General: Well-developed, Well-nourished male. Patient appearing moderately anxious, agitated. Yelling in help. HEENT: Normocephalic, Atraumatic. Eyes: Conjuctiva normal, PERRL. Oropharynx: Clear, mucous membranes moist, (-) exudates. Neck: Soft, FROM, (-) lymphadenopathy, (-) thyromegaly, (-) JVD. Cardiovascular: Normal sinus rhythm, (-) murmur. Lungs: Fair air exchange, Mild wheezes throughout, (-) crackles, (-) rales, (-) rhonchi. Abdomen: Soft, non-tender, non-distended, (-) organomegaly, normal bowel sounds. Back: (-) CVA tenderness Extremities: No edema. Skin: Warm, dry, (-) rash. Neuro: Alert and oriented x3, moves all extremities equally. No ataxia. No gait disturbance. No sensory deficit. Normal strength, normal sensation. Psychiatric: Mood normal, affect normal. Triage Information Reviewed: Yes Vital Signs Reviewed: Yes Completion Of Physical Exam Limited Due To: Level 5, Other - patient is agitated , poor historian Procedures - Sedation Patient Received Moderate/Deep Sedation with Procedure: No - Intubation Time of Intubation: 04:20 Intubation Method: orotracheal Tube Size (cm): 7.5 Medications: Succinylcholine - and Etomidate Breath Sounds after Intubation: equal Intubation Complications: no complications Post Intubation Xray: Yes Progress/Xray Impression: good placement Diagnostics - Laboratory Lab Results: Lab Results 06/10/19 Range/Units 03:30 Patient Temperature Not Reportable ABG pH Pending ABG pH (Temp Correct) Pending ABG pCO2 Pending ABG pCO2 (Temp Corrct Pending ABG pO2 Pending ABG pO2 (Temp Correct Pending ABG HCO3 Pending ABG O2 Saturation Pending ABG Base Excess Pending Respiration Rate Not Reportable O2 Delivery Device oxy Ventilator Type Not Reportable Vent Mode Not Reportable FiO2 100 Inspiratory Time Not Reportable PEEP Not Reportable Pressure Support Not Reportable Pressure Control Not Reportable EPAP Not Reportable IPAP Not Reportable BiPAP Not Reportable Result Diagrams: 06/10/19 03:50 06/10/19 18:12 Lab Statement: Any lab studies that have been ordered have been reviewed, and results considered in the medical decision making process. - Radiology CXR Radiology Interpretation Completed By: ED Physician Summary of Radiographic Findings: Good placement of tube. This imaging scan was reviewed and interpreted by Dr. Oliveros, pending official read. - CT Chest/Thorax CTA CT Interpretation Completed By: Radiologist Summary of CT Findings: Impression: 1. Abnormal CT scan of the chest showing some peripheral ground-glass opacities located predominantly in the right upper and lower lung. This is associated with some multiple pulmonary nodules of varying geometry located in the periphery of both upper and lower lungs. This is in the setting of central lobular emphysema. These nodules range from a couple cm in length to about 5 mm in length. For patients at low risk (minimal or absent history of smoking and of other known risk factors), recommend CT at 3 -6 months, then consider CT at 18-24 months. For patients at high risk (history of smoking or of other known risk factors), recommend CT at 3-6 months, then CT at 18-24 months. (Erickson et al., Fleischner Society, 2017). No comparison studies. This has the appearance of an infectious/inflammatory process. 2. Thin intralobar septal thickening in both pulmonary apices and to a lesser extent lung bases. This may represent interstitial edema. However the heart is of normal size. This this would be a noncardiogenic process. 3. Small right pleural effusion. 4. Supporting tubes are appropriately position. 5. No evidence of pulmonary embolic disease. This report was reviewed by Dr. Oliveros. - EKG 0443 Cardiac Rate: Tachycardia - 147 BPM EKG Rhythm: Sinus Tachycardia Summary of EKG Findings: EKG at 0443 reveals sinus tachycardia with rate of 147 BPM, no STEMI. This EKG was reviewed and interpreted by Dr. Oliveros. Re-Evaluation - Re-Evaluation First Eval Re-Evaluation Time: 07:24 Comment: Patient is on a ventilator and being given antibiotics and nitroglycerin. Patient is intubated, sedated, hypotensive, and tachycardic. Will back off the nitroglycerin drip. Course/Dx - Course Course Of Treatment: 59 year-old male brought in by EMS for shortness of breath. Patient is a poor historian, very agitated upon arrival, but states it has only been one day of shortness of breath with much worsening this morning. 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 Lost consciousness, fell forward hitting his head while sitting. Patient repetitively states he cant breathe, help me. Unable to give a history at this time, although patient does say he is a smoker, has never been intubated. Allergic to Penicillins. Upon arrival, patient is placed under droplet/contact precautions as PUI. He is given a Duoneb for wheezing. On physical exam he has tight wheezing throughout his lungs bilaterally. Moderate agitation. Afebrile. Pulse ox greater than 90 % on Ventimask. ABG is done. Demonstrates a good oxygen saturation. Normal CO2. Acidotic. Patient is given Ativan for agitation. Morphine for possible coronary disease. Unable to chew aspirin at this time. Considering PE versus SD versus infection. Started on heparin and antibiotics. IV fluids. Mental status deteriorated and patient is intubated successfully. Laboratories demonstrate troponin 0.3. Elevated white count of 19.6. Elevated lactic acid. Elevated d-dimer. CTA chest completed with no signs of PE. Ground glass opacities with multiple nodules present. At 0630 tried to admit patient to the hospitalist. They declined admission due to impending change of shift. Patient signed out to oncoming ER doctor for admission. Influenza and Covid pending. - Diagnoses Provider Diagnoses: Tobacco use, Acute respiratory failure, NSTEMI (non-ST elevated myocardial infarction), Respiratory acidosis - Physician Notifications Discussed Care of Patient With: Nadeem Boone - hospitalist Time Discussed With Above Provider: 06:30 Instructed by Provider To: Other - I discussed the patient's case with Dr. Boone, and he is aware of the patient and will let the next team know, but he recommends speaking with the ICU attending at 0700. - Critical Care Time Critical Care Time: 75-104 min - 176 minutes Discharge ED - Sign-Out/Discharge Documenting (check all that apply): Sign-Out Patient Signing out patient TO: Ishmael Chau - Patient is a sign-out to Dr. Ishmael Chau MD, at change of shift at 0700 on 06/10/19, pending admission to the ICU. - Discharge Plan Condition: Guarded Disposition: ADMITTED TO [facility] - Billing Disposition and Condition Condition: GUARDED Disposition: Admitted to [facility] - Attestation Statements Document Initiated by Scribe: Yes Documenting Scribe: Syl Reeves Provider For Whom Scribe is Documenting (Include Credential): Griselda Oliveros MD Scribe Attestation: I, Syl Reeves, scribed for Griselda Oliveros MD on 06/10/19 at 2004. Scribe Documentation Reviewed: Yes Provider Attestation: The documentation as recorded by the traceyibe, Syl Reeves accurately reflects the service I personally performed and the decisions made by me, Griselda Oliveros MD Status of Scribe Document: Viewed
[2019-06-10] MEDS ORDERED: Morphine 4 MG/ML VIAL (1 ml) 4 MG/ML VIAL IV ONE (03:55)
[2019-06-10 04:08] LABS: Hematocrit 46 % (42-52); Hemoglobin 15.2 g/dL (14.0-18.0); Mean Corpuscular HGB Conc 33 g/dL (31-36); Mean Platelet Volume 8.7 fL (7.4-10.4); Platelet Count 285 10^3/uL (150-450); Red Blood Count 4.19 10^6 /uL (4.18-5.48); Red Cell Distribution Width 14 % (10-15); White Blood Count 19.5 10^3/uL (3.5-10.8)
[2019-06-10 04:10] LABS: Activated Partial Thrombo Time 42.3 seconds (26.0-38.0); INR 0.9 (0.82-1.09)
[2019-06-10] MEDS ORDERED: Nitroglycerin TAB 0.4 MG* 0.4 MG TAB ONE (04:11)
[2019-06-10] MEDS ORDERED: Aspirin 81 mg CHEW TAB* 81 MG TAB.CHEW ONE (04:12)
[2019-06-10] MEDS ORDERED: Succinylcholine* 20 MG/ML 10 ML VIAL ONE (04:20)
[2019-06-10] MEDS ORDERED: Etomidate* 2 MG/ML 20 ML VIAL (40 MG) ONE (04:20)
[2019-06-10 04:26] LABS: ALT 63 U/L (7-52); Albumin 4.4 g/dL (3.2-5.2); Albumin/Globulin Ratio 1.5 (1-3); Alkaline Phosphatase 99 U/L (34-104); BUN/Creatinine Ratio 7.6 (8-20); Blood Urea Nitrogen 10 mg/dL (6-24); CO2 Carbon Dioxide 19 mmol/L (22-32); Calcium 9.9 mg/dL (8.6-10.3); Chloride 101 mmol/L (101-111); EGFR African American 68.2 (>60); EGFR Non-African American 56.4 (>60); Globulin 2.9 g/dL (2-4); Glucose 318 mg/dL (70-100); Sodium 138 mmol/L (135-145); Total Protein 7.3 g/dL (6.4-8.9)
[2019-06-10] MEDS ORDERED: nitroGLYCERIN DRIP* 25,000 MCG/250 ML BTL ONE (04:26)
[2019-06-10] MEDS ORDERED: Heparin DRIP 25,000 UNITS(*) 25,000 UNITS/500 ML BAG ONE (04:29)
[2019-06-10] MEDS ORDERED: nitroGLYCERIN DRIP* 25,000 MCG in PREMIX* 0 ML IV ONE (04:29)
[2019-06-10] MEDS ORDERED: Heparin DRIP 25,000 UNITS(*) 25,000 UNITS/500 ML BAG IV ONE (04:29)
[2019-06-10 04:35] LABS: Anion Gap 18 mmol/L (2-11)
[2019-06-10 04:42] LABS: Mean Corpuscular Hemoglobin 36 pg (27-31); Mean Corpuscular Volume 110 fL (80-94)
[2019-06-10] MEDS ORDERED: Iodixanol* (CONTRAST) 320 MG/ML 100 ML SDV IV ONE (04:43)
[2019-06-10 04:46] LABS: ABS Basophils 0.1 10^3/ul (0-0.2); ABS Eosinophils 0.4 10^3/ul (0-0.6); ABS Lymphocytes 7.6 10^3/ul (1.0-4.8); ABS Neutrophils 10.2 10^3/ul (1.5-7.7); Eosinophil % 2.2 %; Lymphocyte % 39.1 %; Nucleated Red Blood Cells % 0.1
[2019-06-10] MEDS ORDERED: Heparin DRIP 25,000 UNITS(*) 25,000 UNITS/500 ML BAG IV SCH (05:00)
[2019-06-10] MEDS ORDERED: Heparin VIAL(*) 5000 UNITS/ML VIAL (FIVE THOUSAND) IV SCH (05:00)
[2019-06-10] MEDS ORDERED: Heparin VIAL(*) 5000 UNITS/ML VIAL (FIVE THOUSAND) ONE (05:04)
[2019-06-10] MEDS ORDERED: Propofol* 100 ML IV ONE (05:05)
[2019-06-10] MEDS ORDERED: Piperacillin/Tazobac ADVAN(*) 3.375 GM in NS 0.9% 100 ML* 100 ML IVPB ONE (07:02)
[2019-06-10 07:10] LABS: Influenza A Molecular Negative (Negative); Influenza B Molecular Negative (Negative)
[2019-06-10 07:12] LABS: Urine Benzodiazepine Screen None Detected (None Detect); Urine Opiates Screen Presumptive Positive (None Detect)
--- NOTE | 2019-06-10 07:16 | ED ---
Progress - Progress Note Progress Note: Patient received as a sign out from Dr. Oliveros at 0700 shift change pending dispo. Re-Evaluation - Re-Evaluation First Eval Re-Evaluation Time: 07:24 Comment: Patient is on a ventilator and being given antibiotics and nitroglycerin. Patient is intubated, sedated, hypotensive, and tachycardic. Will back off the nitroglycerin drip. Course/Dx - Course Course Of Treatment: Patient was signed out by Dr. Oliveros at shift change. Patient is pending admission to the ICU. Meghna Abarca INDIG[facility] MIXER and accepted patient for admission under Dr. Sierra services. - Diagnoses Provider Diagnoses: Tobacco use, Acute respiratory failure, NSTEMI (non-ST elevated myocardial infarction), Respiratory acidosis - Provider Notifications Time Discussed With Above Provider: 06:30 Instructed by Provider To: Other - I discussed the patient's case with Dr. Boone, and he is aware of the patient and will let the next team know, but he recommends speaking with the ICU attending at 0700. At [address] Meghna Abarca came to the ER and evaluated the patient. She accepted the patient under Dr. Rigo montoya services. - Critical Care Time Critical Care Time: 75-104 min - 176 minutes Discharge ED - Sign-Out/Discharge Documenting (check all that apply): Patient Departure - admit - Discharge Plan Condition: Guarded Disposition: ADMITTED TO [facility] - Billing Disposition and Condition Condition: GUARDED Disposition: Admitted to [facility] - Attestation Statements Document Initiated by Serge: Yes Documenting Scribe: Kevin Watts Provider For Whom Serge is Documenting (Include Credential): Ishmael Chau MD Scribe Attestation: Kevin White, scribed for Ishmael Chau MD on 06/10/19 at 1843. Scribe Documentation Reviewed: Yes Provider Attestation: The documentation as recorded by the Kevin perkins accurately reflects the service I personally performed and the decisions made by me, Ishmael Chau MD Status of Scribe Document: Viewed
[2019-06-10 07:39] LABS: Troponin I 3.31 ng/mL (<0.03)
[2019-06-10] MEDS ORDERED: Lactated Ringers 1000 ML Bag* 1,000 ML IV SCH (09:00)
[2019-06-10] MEDS ORDERED: Norepinephrine 16MCG/ML IVPRE* 4,000 MCG/250 ML BAG IV ONE (09:14)
[2019-06-10 09:19] LABS: CKMB ng/mL 29.5 ng/mL (0.6-6.3)
[2019-06-10 09:22] LABS: Creatine Kinase 447 U/L (10-223)
[2019-06-10] MEDS: Norepinephrine 16MCG/ML IVPRE* 4,000 MCG/250 ML BAG IV SCH ×2 (10:53→20:14)
[2019-06-10] MEDS ORDERED: VECURONIUM BROMIDE 10 MG INJ IV ONE (11:00)
[2019-06-10] MEDS ORDERED: Propofol* 100 ML ONE (11:00)
[2019-06-10 11:37] LABS: Potassium Redraw 5.8 mmol/L (3.5-5.0)
[2019-06-10] MEDS: Propofol* 100 ML IV SCH ×3 (12:09→20:14)
[2019-06-10] MEDS ORDERED: Piperacillin/Tazobac ADVAN(*) 3.375 GM in NS 0.9% 100 ML* 100 ML IVPB SCH (13:00)
--- NOTE | 2019-06-10 14:10 | HP ---
CRITICAL CARE MEDICINE HISTORY AND PHYSICAL: DATE OF ADMISSION: 06/10/19 PRIMARY CARE PHYSICIAN: Dr. Nahum Grant. ATTENDING PHYSICIAN: Dr. Atul Sierra * (dictation provided by Danita Abarca NP). CHIEF COMPLAINT: Shortness of breath. HISTORY OF PRESENT ILLNESS: Mr. Garcia is a 59-year-old male with a past medical history of COPD, who was brought to the emergency room via EMS. The patient was intubated at the time of my assessment and is not able to provide any medical history. Per the EMR, the patient has had previous admissions to our hospital for COPD exacerbations including requiring admission to intensive care unit for positive pressure ventilation. He also has a history of peptic ulcer disease, gastrointestinal hemorrhage, GERD, chronic back pain, fibromyalgia, seizure disorder, and right hip arthroplasty. Per the documentation from the emergency room physician, the patient called EMS because he was having shortness of breath. On arrival of the EMS to his home, he had an O2 saturation in the 50s, improved to 80% with bag valve mask ventilation. Per the report, he had been short of breath for about a day. He noted that he had had similar episodes in the past. He is a persistent smoker. In the ED, he was again agitated, pulling at his lines, and was ultimately intubated. Workup thus far shows a leukocytosis with a white blood cell count of 19.5. He had a D-dimer of 913. ABG shows pH 7.07 and pCO2 44 with a mixed respiratory metabolic acidosis. He has a mildly elevated creatinine to 1.31. His lactic acid is 10.8. His initial troponin was 0.3 but repeat troponin within 3 hours was 3.31. His CK is 447, CK-MB 29.5. There is no overt evidence of ischemia on the EKG. His urine tox screen is positive for opiates, amphetamines, and cannabinoids. His flu swab was negative. His chest x-ray shows right upper lobe and right basilar infiltrates are noted. The CTA chest was obtained due to elevated D-dimer and shows the following: "Abnormal CT scan of the chest showing some peripheral ground-glass opacities located predominantly in the right upper and lower lung. This is associated with some multiple pulmonary nodules of varying geometry located in the periphery of both upper and lower lungs. This is in the setting of central lobular emphysema. These nodules range from a couple centimeters in length to about 5 mm in length. This has the appearance of infectious/inflammatory process. Thin interlobular septal thickening in both pulmonary apices and to a lesser extent lung bases. This represent interstitial edema, however, the heart is of normal size. This would be a noncardiogenic process. Small right pleural effusion. No evidence of pulmonary embolic disease." PAST MEDICAL HISTORY: 1. COPD with continued smoking. 2. Fibromyalgia. 3. Seizures. 4. Peptic ulcer disease with GI hemorrhage 2003. 5. GERD. 6. Chronic back pain. 7. DJD of the spine and hip. 8. History of right cataract extraction. 9. Right hip arthroplasty. 10. Hiatal hernia repair. MEDICATIONS: No known medications. FAMILY HISTORY: Per the EMR, the patient had stated that his mother at 67 of lymphoma and his father at 72 of stomach cancer. SOCIAL HISTORY: The patient has not been admitted to the hospital since 2017. During that time, he stated that his healthcare proxy would be his girlfriend, Deanne Healy. There is reported history of smoking. Again, his drug screen is positive. REVIEW OF SYSTEMS: Unobtainable. PHYSICAL EXAMINATION GENERAL: Mr. Garcia is lying in bed. He is sedated and on the ventilator. LUNGS: There is consolidation and diminished breath sounds in the left lower lobe. No crackles, rhonchi, or wheezes are heard. HEART: S1, S2. It is very distant, but no murmur, rub, or gallop is appreciated. ABDOMEN: Soft, nontender with bowel sounds positive x4. EXTREMITIES: No cyanosis or edema. NEUROLOGIC: Again, he is sedated to a RASS -2. SKIN: Intact. DIAGNOSTIC STUDIES/LAB DATA: WBC 19.5, hemoglobin 15.2, hematocrit 46, platelet count 285. INR 0.90, PTT 42.3, D-dimer 913. ABG shows pH of 7.07, pCO2 of 44, pO2 of 146, bicarb 11.5. Sodium 138, potassium 5.8, chloride 108, serum bicarbonate 19, anion gap 18, BUN 10, creatinine 1.31, glucose 318, lactic acid 10.8. Troponin 0.30 at 3:50 followed by a troponin at 7 a.m. at 3.31. Again, the urine screen is positive for opiates, amphetamines, and cannabinoids. Flu swab is negative. Chest x-ray shows the following: "Right upper lobe and right basilar infiltrates are noted. Again, the chest and thorax CTA is as read as above. The EKG shows a sinus rhythm with a tachycardia but no evidence of ischemia. ASSESSMENT: Mr. Garcia is a 59-year-old male with past medical history of chronic obstructive pulmonary disease, who presents to the hospital today with acute worsening of shortness of breath and acute respiratory failure, mixed. He is now intubated in the intensive care unit. The diagnoses of concern are: 1. Acute on chronic respiratory failure, mixed. 2. Chronic obstructive pulmonary disease. 3. Possible pneumonia with ? septic shock. 4. Rule out COVID-19. 5. Non-ST elevation myocardial infarction vs myositis. 6. Lactic acidosis. 7. Substance abuse. PLAN: * Neuro: The patient is sedated appropriately. Plan to continue propofol to RASS -2 to -3. * Cardiovascular: He is hypotensive with blood pressure in the 70s systolically on arrival to the ICU and is being placed on a Levophed drip. The cause of his shock is uncertain, septic vs cardiogenic. Patient's troponin is elevated to 3 but his EKG shows no significant ischemic changes. He was placed on a heparin gtt in the ED but this will be discontinued. Plan to continue repeat troponins with EKGs, add on CKMB. His heart rate is running in the 100s to 130s. * Respiratory: The patient is intubated and tolerating the ventilator well, settings will be adjusted based on clinical course. * ID: The patient is on ceftriaxone and doxycycline for concern of pneumonia with possible septic shock. Blood cultures were sent. Again, he has a profound lactic acidosis at 10 and a repeat is pending. Question whether lactic acidosis is related to agitation or seizure. * GI: N.P.O. OG tube is in place. * Renal: The patient's creatinine is slightly elevated with acute kidney injury. We will dose home medications renally. He will continue on IV fluids for now. * Hematology: He has no anemia, no thrombocytopenia. He has a mild leukocytosis. * Endocrine: No evidence of history of diabetes. We will monitor blood glucose as per routine. * Musculoskeletal/skin: The patient will be turned to position q.2 hours. No active issues identified. * Wounds: None. * DVT prophylaxis with SCDs * Lines: The patient has a central venous access placed by Dr. Sierra here in the ICU. We are anticipating placing an arterial line as well if he remains hypotensive. * Disposition: The patient requires critical care for acute respiratory failure requiring mechanical ventilation, possible septic shock and NSTEMI * The patient's clinical status is critical. * Code status is full code. I am making efforts to reach out to family members but I have not been able to reach anyone yet. * Total critical care time is greater 60 minutes. TIME SPENT: Approximately 60 minutes was spent in the dictation and processing and admission of Mr. Garcia to the intensive care unit. DANITA ABARCA NP [id number]/[facility] #: [id number]
[2019-06-10] MEDS: cefTRIAXone(*) 1 GM in NS 0.9% 50 ML* 50 ML IVPB SCH (14:29)
[2019-06-10] MEDS: DOXYcycline IV* 100 MG in NS 0.9% 250 ML* 250 ML IVPB SCH (14:31)
[2019-06-10 14:50] LABS: Troponin I 4.79 ng/mL (<0.03)
--- NOTE | 2019-06-10 15:19 | PN ---
Sepsis Event Evaluation Date of Evaluation: 06/10/19 Time of Evaluation: 10:00 Current Stage of Sepsis: Septic Shock Vital Signs - Last 12 Hours: Vital Signs - 12 hr Temp Pulse Resp BP Pulse Ox 06/10/19 14:33 98.1 F 06/10/19 14:15 102 105/79 100 06/10/19 14:00 102 34 100/79 100 06/10/19 13:45 103 113/78 100 06/10/19 13:30 104 97/82 100 06/10/19 13:16 103 98/75 100 06/10/19 13:00 104 30 111/74 100 06/10/19 12:45 105 101/79 100 06/10/19 12:30 108 100/75 100 06/10/19 12:15 108 101/79 100 06/10/19 12:00 111 30 93/75 100 06/10/19 11:45 115 96/74 100 06/10/19 11:30 119 101/79 100 06/10/19 11:15 115 100/75 100 06/10/19 11:00 123 20 95/77 100 06/10/19 10:45 125 103/83 99 06/10/19 10:30 130 95/74 98 06/10/19 10:15 116 132/100 90 06/10/19 10:00 118 44 102/75 94 06/10/19 09:45 123 77/65 94 06/10/19 09:30 126 88/62 94 06/10/19 09:27 127 83/66 94 06/10/19 09:15 129 77/65 93 06/10/19 09:09 132 74/54 92 06/10/19 09:00 137 33 85/58 91 06/10/19 08:50 97.8 F 140 38 98/70 92 06/10/19 08:49 98.3 F 127 29 96/69 100 06/10/19 08:17 128 94/75 100 06/10/19 08:12 126 96/76 100 06/10/19 08:07 128 93/71 100 06/10/19 08:03 126 100/73 100 06/10/19 08:00 129 100 06/10/19 07:57 129 105/68 100 06/10/19 07:52 129 88/64 100 06/10/19 07:47 126 93/71 100 06/10/19 07:42 128 100/73 100 06/10/19 07:37 129 102/74 100 06/10/19 07:32 131 92/73 100 06/10/19 07:27 131 94/73 100 06/10/19 07:22 133 88/68 100 06/10/19 07:17 134 96/71 100 06/10/19 07:12 134 91/71 100 06/10/19 07:07 136 95/75 100 06/10/19 07:02 139 95/67 98 06/10/19 07:00 136 100 06/10/19 06:58 137 98/78 100 06/10/19 06:53 136 104/83 100 06/10/19 06:48 136 97/77 100 06/10/19 06:43 135 91/67 100 06/10/19 06:38 139 94/64 99 06/10/19 06:33 141 92/62 99 06/10/19 06:28 148 95/71 99 06/10/19 06:23 147 102/75 99 06/10/19 06:18 150 94/62 99 06/10/19 06:13 149 99/71 98 06/10/19 06:12 152 101/77 98 06/10/19 06:08 157 120/87 98 06/10/19 06:05 16 06/10/19 06:04 165 124/101 98 06/10/19 06:00 166 99 06/10/19 05:53 152 108/82 97 06/10/19 05:48 152 116/88 98 06/10/19 05:43 156 117/93 97 06/10/19 05:41 153 134/92 98 06/10/19 05:38 151 123/100 98 06/10/19 05:14 161 153/107 98 06/10/19 05:12 163 153/106 97 06/10/19 05:02 160 149/107 98 06/10/19 05:00 153 98 06/10/19 04:58 153 139/99 97 06/10/19 04:54 160 147/108 99 06/10/19 04:47 152 150/108 99 06/10/19 04:40 144 151/118 100 06/10/19 04:10 155 32 165/114 88 06/10/19 04:09 151 44 88 06/10/19 04:07 112 26 96 06/10/19 04:06 34 06/10/19 03:53 0 F 156 40 166/100 83 06/10/19 03:51 18 Lactic Acid: 06/10/19 06/10/19 03:50 10:50 Lactic Acid 10.8 H* 1.4 - Cardiopulmonary Exam Capillary Refill: Immediate Respiratory: Symmetrical Chest Expansion and Respiratory Effort, - - Diminished lung sounds in the left base, clear otherwise Cardiovascular: NL Sounds; No Murmurs; No JVD, No Edema, - - Distant heart sounds - Peripheral Pulse Exam Femoral Pulses: Bilateral Normal - Skin Exam Skin Exam: Normal Turgor - Sharon Coma Scale Best Eye Response: 1 - None - paralyzed Best Motor Response: 1 - None - paralyzed Best Verbal Response: 1 - Intubated - Sedated on propofol Coma Scale Total: 3.0 Assess/Plan/Problems-Billing Assessment:
[2019-06-10 15:50] LABS: BUN/Creatinine Ratio 16.3 (8-20); Blood Urea Nitrogen 17 mg/dL (6-24); CO2 Carbon Dioxide 15 mmol/L (22-32); Calcium 7.5 mg/dL (8.6-10.3); Chloride 109 mmol/L (101-111); EGFR African American 89.1 (>60); EGFR Non-African American 73.6 (>60); Glucose 181 mg/dL (70-100); Sodium 133 mmol/L (135-145)
[2019-06-10 15:57] LABS: Anion Gap 9 mmol/L (2-11); Potassium 6.5 mmol/L (3.5-5.0)
[2019-06-10] MEDS ORDERED: Insulin REGULAR(*) 1 UNITS UNIT IV PUSH ONE (16:01)
[2019-06-10] MEDS ORDERED: Dextrose 50% Syringe 50 ML* 25 GM/50 ML SYRINGE IV PUSH ONE (16:03)
[2019-06-10] MEDS ORDERED: Sodium Polystyrene ORAL.SUSP* 15 GM/60 ML BTL NG TUBE ONE (16:08)
[2019-06-10 17:45] LABS: Creatine Kinase 718 U/L (10-223)
[2019-06-10] MEDS: Chlorhexidine MOUTHWASH 0.12%* 15 ML UDC TOPICAL SCH ×2 (18:07→20:14)
[2019-06-10 18:58] LABS: Troponin I 6.47 ng/mL (<0.03)
[2019-06-10 19:01] LABS: Potassium 4.7 mmol/L (3.5-5.0)
[2019-06-10] MEDS: Lactated Ringers 1000 ML Bag* 1,000 ML IV SCH (20:14)
--- NOTE | 2019-06-10 21:15 | PRO ---
PROCEDURE NOTE: DATE OF PROCEDURE: 06/10/19 - ROOM #ICU-01 PROCEDURE: Insertion of a triple-lumen central venous catheter. DESCRIPTION OF PROCEDURE: The patient is a 59-year-old white male, who is admitted with a possible septic shock and required an additional IV access. Under ultrasound guidance, a size 7-Lao triple-lumen catheter was inserted into the right internal jugular vein and advanced into the superior vena cava. There were no apparent complications, and a postprocedure chest x-ray confirmed proper placement of the catheter. [id number]/[facility] #: [id number] [facility]
[2019-06-10 21:43] LABS: Troponin I 7.48 ng/mL (<0.03)
[2019-06-11] MEDS: Propofol* 100 ML IV SCH ×6 (00:05→21:27)
[2019-06-11] MEDS: Chlorhexidine MOUTHWASH 0.12%* 15 ML UDC TOPICAL SCH ×6 (00:16→21:24)
[2019-06-11] MEDS: DOXYcycline IV* 100 MG in NS 0.9% 250 ML* 250 ML IVPB SCH ×2 (00:18→13:15)
[2019-06-11] MEDS: Norepinephrine 16MCG/ML IVPRE* 4,000 MCG/250 ML BAG IV SCH (03:22)
[2019-06-11 06:01] LABS: ABS Lymphocytes 1.6 10^3/ul (1.0-4.8); ABS Monocytes 1.1 10^3/ul (0-0.8); ABS Neutrophils 17.4 10^3/ul (1.5-7.7); Hematocrit 42 % (42-52); Hemoglobin 14.3 g/dL (14.0-18.0); Lymphocyte % 7.9 %; Mean Corpuscular HGB Conc 34 g/dL (31-36); Mean Corpuscular Hemoglobin 36 pg (27-31); Mean Corpuscular Volume 106 fL (80-94); Mean Platelet Volume 8.5 fL (7.4-10.4); Platelet Count 202 10^3/uL (150-450); Red Blood Count 3.98 10^6 /uL (4.18-5.48); Red Cell Distribution Width 13 % (10-15); White Blood Count 20.1 10^3/uL (3.5-10.8)
[2019-06-11 06:03] LABS: INR 1.1 (0.82-1.09)
[2019-06-11 06:18] LABS: BUN/Creatinine Ratio 16.5 (8-20); EGFR African American 112.4 (>60); EGFR Non-African American 92.9 (>60)
[2019-06-11 07:56] LABS: Troponin I 5.89 ng/mL (<0.03)
[2019-06-11] MEDS: Pantoprazole IV* 40 MG IV SCH (08:14)
--- NOTE | 2019-06-11 13:00 | PN ---
Date of Service: 06/11/19 Critical Care Services: Stable overnight Vital Signs: Temp Pulse Resp BP SpO2 FiO2 37.2 C 99 20 103/74 100 50 06/11/19 12:00 06/11/19 12:00 06/11/19 11:00 06/11/19 12:00 06/11/19 12:00 06/10 08:00 Physical Exam: Gen: sedated on vent HEENT: NCAT, PERRL, intubated Lungs: coarse entry Cardiac: S1S2 regular Abdomen: soft, NT, ND, +BS Extremities: no edema Neuro: sedated, moves ext Fluid Balance (Past 24 Hours): I= O= Net Intake & Output 06/09/19 06/10/19 06/11/19 06/12/19 06:59 06:59 06:59 06:59 Intake Total 6696.3 66 Output Total 1615 950 Balance 5081.3 -884 Weight 77.111 kg 63.56 kg Intake: IV Fluids 5566 LR 2466 Medicated IV 1130.3 66 CC - Propofol/Diprivan 398 66 Heparin 196 Levophed 536.3 Output: G Tube 150 Key [id number] Labs: Laboratory Results - last 24 hr 06/10/19 06/10/19 06/10/19 11:55 14:22 18:12 WBC RBC Hgb Hct MCV MCH MCHC RDW Plt Count MPV Neut % (Auto) Lymph % (Auto) Burnett % (Auto) Eos % (Auto) Baso % (Auto) Absolute Neuts (auto) Absolute Lymphs (auto) Absolute Monos (auto) Absolute Eos (auto) Absolute Basos (auto) Absolute Nucleated RBC Nucleated RBC % INR (Anticoag Therapy) APTT >240.0 H* Sodium 133 L Potassium 6.5 H* 4.7 D Chloride 109 Carbon Dioxide 15 L Anion Gap 9 BUN 17 Creatinine 1.04 Est GFR ( Amer) 89.1 Est GFR (Non-Af Amer) 73.6 BUN/Creatinine Ratio 16.3 Glucose 181 H Calcium 7.5 L Total Creatine Kinase 718 H Troponin I 4.79 H* 6.47 H* 06/10/19 06/11/19 06/11/19 20:53 05:22 05:22 WBC 20.1 H RBC 3.98 L Hgb 14.3 Hct 42 MCV 106 H MCH 36 H MCHC 34 RDW 13 Plt Count 202 MPV 8.5 Neut % (Auto) 86.8 Lymph % (Auto) 7.9 Burnett % (Auto) 5.3 Eos % (Auto) 0.0 Baso % (Auto) 0.0 Absolute Neuts (auto) 17.4 H Absolute Lymphs (auto) 1.6 Absolute Monos (auto) 1.1 H Absolute Eos (auto) 0.0 Absolute Basos (auto) 0.0 Absolute Nucleated RBC 0.0 Nucleated RBC % 0.0 INR (Anticoag Therapy) APTT Sodium 137 Potassium 4.0 Chloride 109 Carbon Dioxide 22 Anion Gap 6 BUN 14 Creatinine 0.85 Est GFR ( Amer) 112.4 Est GFR (Non-Af Amer) 92.9 BUN/Creatinine Ratio 16.5 Glucose 141 H Calcium 8.0 L Total Creatine Kinase Troponin I 7.48 H* 5.89 H* 06/11/19 05:22 WBC RBC Hgb Hct MCV MCH MCHC RDW Plt Count MPV Neut % (Auto) Lymph % (Auto) Burnett % (Auto) Eos % (Auto) Baso % (Auto) Absolute Neuts (auto) Absolute Lymphs (auto) Absolute Monos (auto) Absolute Eos (auto) Absolute Basos (auto) Absolute Nucleated RBC Nucleated RBC % INR (Anticoag Therapy) 1.10 H APTT 49.0 H Sodium Potassium Chloride Carbon Dioxide Anion Gap BUN Creatinine Est GFR ( Amer) Est GFR (Non-Af Amer) BUN/Creatinine Ratio Glucose Calcium Total Creatine Kinase Troponin I Studies: Right sided infiltrates Nutrition: Start TF Impression: Acute hypoxic respiratory failure secondary to pneumonia Plan: Acute hypoxic respiratory failure - secondary to pneumonia. Infiltrates on CXR, CAP Abx on board. WBC stable at 20. Blood cultures drawn. COntinue current Abx and time. May be able to extubate as soon as tomorrow. COVID rule out in progress. Ideally would not extubate until status known. Let's see where the next 24H takes us. Drug dependence - on diprivan and fentanyl, no signs of withdrawal as yet GI/DVT prophylaxis and TF on board. Critical Care Time: 35 minutes
[2019-06-11] MEDS: Lactated Ringers 1000 ML Bag* 1,000 ML IV SCH (15:03)
[2019-06-11] MEDS: Heparin VIAL(*) 5000 UNITS/ML VIAL (FIVE THOUSAND) SUBCUT SCH ×2 (15:05→21:24)
[2019-06-11] MEDS: cefTRIAXone(*) 1 GM in NS 0.9% 50 ML* 50 ML IVPB SCH (15:36)
[2019-06-12] MEDS: Propofol* 100 ML IV SCH ×4 (01:21→20:02)
[2019-06-12] MEDS: DOXYcycline IV* 100 MG in NS 0.9% 250 ML* 250 ML IVPB SCH ×2 (01:26→14:06)
[2019-06-12] MEDS: Chlorhexidine MOUTHWASH 0.12%* 15 ML UDC TOPICAL SCH ×6 (01:27→20:03)
[2019-06-12] MEDS: Lactated Ringers 1000 ML Bag* 1,000 ML IV SCH ×3 (01:27→20:04)
[2019-06-12 04:51] LABS: ABS Basophils 0.1 10^3/ul (0-0.2); ABS Eosinophils 0.1 10^3/ul (0-0.6); ABS Lymphocytes 2.7 10^3/ul (1.0-4.8); ABS Monocytes 0.6 10^3/ul (0-0.8); Eosinophil % 0.7 %; Hematocrit 35 % (42-52); Hemoglobin 12.3 g/dL (14.0-18.0); Lymphocyte % 25.5 %; Mean Corpuscular HGB Conc 35 g/dL (31-36); Mean Corpuscular Hemoglobin 36 pg (27-31); Mean Corpuscular Volume 104 fL (80-94); Mean Platelet Volume 8.9 fL (7.4-10.4); Nucleated Red Blood Cells % 0.1; Platelet Count 127 10^3/uL (150-450); Red Blood Count 3.38 10^6 /uL (4.18-5.48); Red Cell Distribution Width 13 % (10-15); White Blood Count 10.5 10^3/uL (3.5-10.8)
[2019-06-12 05:07] LABS: Albumin 2.8 g/dL (3.2-5.2); Albumin/Globulin Ratio 1.4 (1-3); BUN/Creatinine Ratio 17.2 (8-20); Calcium 8.2 mg/dL (8.6-10.3); EGFR Non-African American 128.9 (>60); Potassium 3.3 mmol/L (3.5-5.0); Total Bilirubin 0.4 mg/dL (0.2-1.0); Total Protein 4.8 g/dL (6.4-8.9)
[2019-06-12] MEDS: Heparin VIAL(*) 5000 UNITS/ML VIAL (FIVE THOUSAND) SUBCUT SCH ×3 (06:09→20:03)
[2019-06-12] MEDS: Pantoprazole IV* 40 MG IV SCH (08:17)
--- NOTE | 2019-06-12 10:09 | PN ---
Date of Service: 06/12/19 Critical Care Services: Stable overnight Vital Signs: Temp Pulse Resp BP SpO2 FiO2 36.5 C 98 20 110/79 98 35 06/12/19 07:30 06/12/19 07:30 06/12/19 06:00 06/12/19 07:30 06/12/19 07:30 06/11 08:42 Physical Exam: Gen: comfortably sedated HEENT: NCAT, PERRL, intubated Lungs: clear Cardiac: S1S2 regular Abdomen: soft, NT, ND, +BS Extremities: no edema Neuro: sedated, moves ext Fluid Balance (Past 24 Hours): I= O= Net Intake & Output 06/10/19 06/11/19 06/12/19 06/13/19 06:59 06:59 06:59 06:59 Intake Total 6696.3 4324 Output Total 1615 2660 Balance 5081.3 1664 Weight 77.111 kg 63.56 kg 68.266 kg Intake: IV Fluids 5566 2544 LR 2466 2431 NS (0.9%) 113 IVPB 600 ABX - CEFTRIAXONE 58 ABX - DOXYCYCLINE 542 Medicated IV 1130.3 588 CC - Propofol/Diprivan 398 539 Heparin 196 Levophed 536.3 49 Tube Feeding 592 Output: G Tube 150 Key [id number] Labs: Laboratory Results - last 24 hr 06/10/19 06/12/19 06/12/19 03:50 04:45 04:45 WBC 10.5 RBC 3.38 L Hgb 12.3 L Hct 35 L MCV 104 H MCH 36 H MCHC 35 RDW 13 Plt Count 127 L MPV 8.9 Neut % (Auto) 67.2 Lymph % (Auto) 25.5 Petroleum % (Auto) 5.5 Eos % (Auto) 0.7 Baso % (Auto) 1.1 Absolute Neuts (auto) 7.0 Absolute Lymphs (auto) 2.7 Absolute Monos (auto) 0.6 Absolute Eos (auto) 0.1 Absolute Basos (auto) 0.1 Absolute Nucleated RBC 0.0 Nucleated RBC % 0.1 Hem Pathologist Commnt Sodium 138 Potassium 3.3 L Chloride 110 Carbon Dioxide 25 Anion Gap 3 BUN 11 Creatinine 0.64 L Est GFR ( Amer) 156.0 Est GFR (Non-Af Amer) 128.9 BUN/Creatinine Ratio 17.2 Glucose 141 H Calcium 8.2 L Total Bilirubin 0.40 AST 73 H ALT 155 H Alkaline Phosphatase 50 Total Protein 4.8 L Albumin 2.8 L Globulin 2.0 Albumin/Globulin Ratio 1.4 Studies: CXR improved Nutrition: Rena TF Impression: Acute Hypoxic Respiratory Failure in the setting of agitated delirium Plan: Acute Hypoxic Respiratory Failure - in the setting of agitated delirium. Infiltrates on CXR more consistent with scattered atelectasis than pneumonia but will continue therapy for now and await COVID results. I weaned his vent a bit while at bedside and now on 20/5 PC, 35% and doing well. WBC down to 10 from 20. Tolerating TF with reasonable glycemic control. Lytes look OK sans mild hypokalemia, will treat. Expect to extubate next 24H. Critical Care Time: 35 minutes
[2019-06-12] MEDS ORDERED: Potassium Chloride* LIQUID 20 MEQ/15 ML UDC PO ONE (10:57)
[2019-06-12] MEDS: KCL 20 MEQ/100 ML IVPREMIX* 20 MEQ/100 ML BAG IV SCH ×2 (11:28→13:22)
[2019-06-12] MEDS: cefTRIAXone(*) 1 GM in NS 0.9% 50 ML* 50 ML IVPB SCH (13:22)
[2019-06-12] MEDS ORDERED: LORazepam INJ* 2 MG/ML 1 ML VIAL IV PUSH ONE (22:00)
[2019-06-13] MEDS: Propofol* 100 ML IV SCH ×4 (00:03→10:42)
[2019-06-13] MEDS: Chlorhexidine MOUTHWASH 0.12%* 15 ML UDC TOPICAL SCH ×3 (00:03→07:36)
[2019-06-13] MEDS: DOXYcycline IV* 100 MG in NS 0.9% 250 ML* 250 ML IVPB SCH ×2 (02:17→13:38)
[2019-06-13] MEDS: Heparin VIAL(*) 5000 UNITS/ML VIAL (FIVE THOUSAND) SUBCUT SCH ×3 (05:29→21:37)
[2019-06-13] MEDS: Lactated Ringers 1000 ML Bag* 1,000 ML IV SCH ×2 (05:43→12:49)
[2019-06-13 06:13] LABS: Albumin 2.8 g/dL (3.2-5.2); Albumin/Globulin Ratio 1.3 (1-3); BUN/Creatinine Ratio 16.1 (8-20); Calcium 8.4 mg/dL (8.6-10.3); EGFR African American 161.8 (>60); EGFR Non-African American 133.7 (>60); Globulin 2.2 g/dL (2-4); Magnesium 1.6 mg/dL (1.9-2.7); Phosphorus 4.2 mg/dL (2.5-5.0); Potassium 3.9 mmol/L (3.5-5.0); Total Bilirubin 0.4 mg/dL (0.2-1.0)
[2019-06-13] MEDS: Pantoprazole IV* 40 MG IV SCH (07:36)
[2019-06-13] MEDS ORDERED: Furosemide IV* 10 MG/ML 10 ML VIAL (100 MG) IV ONE (12:23)
[2019-06-13] MEDS: cefTRIAXone(*) 1 GM in NS 0.9% 50 ML* 50 ML IVPB SCH (12:52)
[2019-06-13] MEDS ORDERED: Dexmedetomidine* 1,000 MCG in NS 0.9% 250 ML* 240 ML IV SCH (13:00)
--- NOTE | 2019-06-13 13:27 | PN ---
Date of Service: 06/13/19 Critical Care Services: Stable overnight. Vital Signs: Temp Pulse Resp BP SpO2 FiO2 35.9 C 112 22 135/89 94 30 06/13/19 11:45 06/13/19 13:00 06/13/19 13:00 06/13/19 13:00 06/13/19 13:00 06/12 08:34 Physical Exam: Gen: sedated comfortably HEENT: NCAT, PERRL, intubated Lungs: coarse entry Cardiac: S1S2 regular Abdomen: benign Extremities: trace edema Neuro: grossly non-focal Fluid Balance (Past 24 Hours): I= O= Net Intake & Output 06/11/19 06/12/19 06/13/19 06/14/19 06:59 06:59 06:59 06:59 Intake Total 6696.3 4324 2678 2796 Output Total 1615 2660 2365 950 Balance 5081.3 0011 214 8209 Weight 63.56 kg 68.266 kg Intake: IV Fluids 5566 2544 1747 906 ABX - DOXYCYCLINE 360 LR 2466 2431 1747 546 NS (0.9%) 113 IVPB 600 271 ABX - CEFTRIAXONE 58 60 ABX - DOXYCYCLINE 542 KCL 211 Medicated IV 1130.3 588 730 CC - Propofol/Diprivan 398 539 730 Heparin 196 Levophed 536.3 49 Oral 0 Tube Feeding 093 694 6270 Output: G Tube 150 Key 1465 2660 2365 950 Labs: Laboratory Results - last 24 hr 06/10/19 06/13/19 06:36 05:45 Sodium 141 Potassium 3.9 Chloride 109 Carbon Dioxide 27 Anion Gap 5 BUN 10 Creatinine 0.62 L Est GFR ( Amer) 161.8 Est GFR (Non-Af Amer) 133.7 BUN/Creatinine Ratio 16.1 Glucose 161 H Calcium 8.4 L Phosphorus 4.2 Magnesium 1.6 L Total Bilirubin 0.40 AST 73 H ALT 193 H Alkaline Phosphatase 55 Total Protein 5.0 L Albumin 2.8 L Globulin 2.2 Albumin/Globulin Ratio 1.3 COVID-19 PCR Undetected Studies: CXR improved Nutrition: TF tolerated. Impression: Acute Hypoxic/Hypercapnic Respiratory Failure now improving Plan: Acute Hypoxic/Hypercapnic Respiratory Failure - improved. COVID negative. Very low clinical suspicion. Remove precautions and extubate. At risk for withdrawal , may need precedex. Will gia need a little lasix as well. Pneumonia - I'm not as convinced in hindsight, will likely DC Abx tomorrow if BCs remain negative. Substance Abuse/Dependence - as above Critical Care Time: 40 minutes
[2019-06-13] MEDS ORDERED: Albuterol 2.5 MG/3 ML NEB.SOL* (0.083%) INH ONE (17:23)
[2019-06-13] MEDS: Albuterol HFA INHALER* 8 gm MDI INH PRN (20:24)
[2019-06-14] MEDS: Albuterol HFA INHALER* 8 gm MDI INH PRN ×2 (04:14→12:22)
[2019-06-14] MEDS: DOXYcycline IV* 100 MG in NS 0.9% 250 ML* 250 ML IVPB SCH ×2 (04:56→18:06)
[2019-06-14] MEDS: Heparin VIAL(*) 5000 UNITS/ML VIAL (FIVE THOUSAND) SUBCUT SCH ×3 (05:10→21:49)
[2019-06-14 05:23] LABS: ABS Eosinophils 0.1 10^3/ul (0-0.6); ABS Lymphocytes 1.7 10^3/ul (1.0-4.8); ABS Monocytes 0.5 10^3/ul (0-0.8); ABS Neutrophils 5.1 10^3/ul (1.5-7.7); Eosinophil % 1.3 %; Hematocrit 32 % (42-52); Hemoglobin 11.2 g/dL (14.0-18.0); Lymphocyte % 23.4 %; Mean Corpuscular HGB Conc 35 g/dL (31-36); Mean Corpuscular Hemoglobin 37 pg (27-31); Mean Corpuscular Volume 105 fL (80-94); Mean Platelet Volume 9.3 fL (7.4-10.4); Platelet Count 117 10^3/uL (150-450); Red Blood Count 3.06 10^6 /uL (4.18-5.48); Red Cell Distribution Width 13 % (10-15); White Blood Count 7.4 10^3/uL (3.5-10.8)
[2019-06-14 05:39] LABS: Calcium 8.3 mg/dL (8.6-10.3); Potassium 3.6 mmol/L (3.5-5.0)
[2019-06-14 05:44] LABS: BUN/Creatinine Ratio 23.2 (8-20); EGFR Non-African American 118.2 (>60)
[2019-06-14] MEDS: Pantoprazole IV* 40 MG IV SCH (09:45)
[2019-06-14] MEDS ORDERED: Magnesium Sulfate 2 GM IV* 2 GM/50 ML BAG IVPB ONE (10:03)
--- NOTE | 2019-06-14 10:03 | PN ---
Date of Service: 06/14/19 Critical Care Services: Tolerated extubation well Vital Signs: Temp Pulse Resp BP SpO2 FiO2 37.2 C 80 25 98/62 97 30 06/14/19 08:00 06/14/19 08:15 06/14/19 08:15 06/14/19 08:00 06/14/19 08:15 06/12 08:34 Physical Exam: Gen: NAD, non-toxic HEENT: NCAT, PERRL Lungs: basilar crackles right Cardiac: S1S2 regular Abdomen: benign Extremities: no edema Neuro: odd affect but grossly intact Fluid Balance (Past 24 Hours): I= O= Net Intake & Output 06/12/19 06/13/19 06/14/19 06/15/19 06:59 06:59 06:59 06:59 Intake Total 4324 2678 3582 120 Output Total 2660 2365 4650 Balance 1664 313 -1068 120 Weight 68.266 kg 67.132 kg Intake: IV Fluids 2544 1747 1075 ABX - DOXYCYCLINE 360 KCL 80 LR 2431 1747 546 NS (0.9%) 113 44 Precedex 45 IVPB 600 271 377 ABX - CEFTRIAXONE 58 60 ABX - DOXYCYCLINE 542 377 KCL 211 Medicated IV 588 730 CC - Propofol/Diprivan 539 730 Levophed 49 Oral 0 240 120 Tube Feeding 252 447 9486 Output: Urine 0 Key 2660 2365 4650 Labs: Laboratory Results - last 24 hr 06/14/19 06/14/19 05:00 05:00 WBC 7.4 RBC 3.06 L Hgb 11.2 L Hct 32 L MCV 105 H MCH 37 H MCHC 35 RDW 13 Plt Count 117 L MPV 9.3 Neut % (Auto) 68.0 Lymph % (Auto) 23.4 [place] % (Auto) 7.0 Eos % (Auto) 1.3 Baso % (Auto) 0.3 Absolute Neuts (auto) 5.1 Absolute Lymphs (auto) 1.7 Absolute Monos (auto) 0.5 Absolute Eos (auto) 0.1 Absolute Basos (auto) 0.0 Absolute Nucleated RBC 0.0 Nucleated RBC % 0.0 Sodium 141 Potassium 3.6 Chloride 104 Carbon Dioxide 30 Anion Gap 7 BUN 16 Creatinine 0.69 Est GFR ( Amer) 143.0 Est GFR (Non-Af Amer) 118.2 BUN/Creatinine Ratio 23.2 H Glucose 108 H Calcium 8.3 L Nutrition: Taking PO Impression: Acute Hypoxic/Hypercapnic Respiratory Failure resolving Plan: Acute Hypoxic / Hypercapnic Respiratory Failure - infiltrates and leukocytosis on admission but may have all been atelectasis/aspiration pneumonitis and related to drug intoxication. COVID negative. Tolerated extubation well. Now comfortable on NC in negative balance 1 liter after lasix yesterday. Pneumonia - not clear if pneumonia or pneumonitis/atelectasis. Today is Day #4 of Abx. Cultures have been negative. WBC is normal x 2 days without fever. CXR improved rapidly. Would complete 5 days Abx therapy and DC Abx after they are dosed tomorrow. Appropriate for transfer to the floor.
[2019-06-14] MEDS: cefTRIAXone(*) 1 GM in NS 0.9% 50 ML* 50 ML IVPB SCH (13:09)
[2019-06-15] MEDS ORDERED: Acetaminophen TAB* 325 MG PO PRN (04:10)
[2019-06-15] MEDS: DOXYcycline IV* 100 MG in NS 0.9% 250 ML* 250 ML IVPB SCH (05:02)
[2019-06-15] MEDS: Heparin VIAL(*) 5000 UNITS/ML VIAL (FIVE THOUSAND) SUBCUT SCH ×2 (05:37→13:03)
[2019-06-15] MEDS: Pantoprazole IV* 40 MG IV SCH (09:08)
[2019-06-15] MEDS: cefTRIAXone(*) 1 GM in NS 0.9% 50 ML* 50 ML IVPB SCH (13:03)
[2019-06-15] MEDS ORDERED: DOXYcycline CAP(*) 100 MG PO ONE (15:30)
[2019-06-15 16:24] VITALS: BP 147/96
--- NOTE | 2019-06-15 18:30 | DS ---
CC: Dr. Nahum Grant * DISCHARGE SUMMARY: DATE OF ADMISSION: 06/10/19 DATE OF DISCHARGE: 06/15/19 PRIMARY CARE PROVIDER: Dr. Nahum Grant. DISPOSITION AT DISCHARGE: Home. CONDITION AT DISCHARGE: Stable. DISCHARGE DIAGNOSES: 1. Acute hypercapnic respiratory failure likely due to aspiration pneumonia. 2. Troponin peaked at 7.4, suspected demand ischemia. SECONDARY DIAGNOSES: 1. Chronic obstructive pulmonary disease with continued smoking. 2. Fibromyalgia. 3. Seizure disorder. 4. Peptic ulcer disease with hemorrhage in 2003. 5. Gastroesophageal reflux disease. 6. Chronic pain. 7. Cataract surgery in the past. 8. Hiatal hernia repair in the past. 9. Likely polysubstance abuse MEDICATIONS AT HOME: Include: 1. Robaxin 1500 mg every 8 hours p.r.n. 2. Percocet 5/325 mg 1 to 2 tablets every 6 to 8 hours p.r.n. 3. Spiriva 2 inhalations daily. 4. Depakote DR 500 mg q.p.m., 250 mg q.a.m. 5. Carafate 1 g 4 times a day. 6. Ferrous sulfate 325 mg daily. 7. Bentyl 20 mg 4 times a day p.r.n. 8. Vitamin B12 at 2000 mcg p.o. daily. 9. Lipitor 20 mg at bedtime. 10. Dulera 200/5 two puffs b.i.d. 11. Protonix 40 mg daily. 12. Albuterol inhaler on a p.r.n. basis. 13. Albuterol nebulizer on a p.r.n. basis. 14. Acetaminophen on a p.r.n. basis. 15. Nicotine patch 7 mg/24 hours 1 patch transdermally daily. 16. Nicotine inhaler on a p.r.n. basis. LABORATORY DATA AND STUDIES PERFORMED DURING THE HOSPITAL STAY: Included: On 06/14/19, sodium of 141, potassium 3.6, chloride 104, carbon dioxide 30, BUN 16 , creatinine 0.69. CBC on 06/14/19, white blood cell count of 7.4, hemoglobin of 11.2, hematocrit of 32, and platelets of 117. ABG at admission showed pH of 7.07, pCO2 of 44, pO2 of 146, bicarb of 11.5. Most recent chest x-ray obtained on 06/12/19, impression: "Lines and tubes as above. Patchy atelectasis versus consolidation at the right lung base with improved aeration compared to 06/10/19." UDS: positive for opiates, amphetamines and cannabis CT angiogram of the chest obtained on 06/10/19, impression: "Abnormal CT scan of the chest showing some peripheral ground-glass opacities located predominantly in the right upper and lower lung. This is associated with some multiple pulmonary nodules varying geometry located in the periphery of both upper and lower lungs, this is in the setting of centrolobular emphysema. These nodules ranged from a couple of centimeters in length about 5 mm in length. For the patients at high risk, recommend repeat CT in 3 to 6 months. No comparison studies. This has an appearance of an infectious inflammatory process. Thin interlobular septal thickening in both pulmonary apices and to the lesser extent at lung bases. This may represent interstitial edema; however , the heart is in normal size, this would be a noncardiogenic process. Small right pleural effusion. Supporting tubes are appropriately positioned. No evidence of pulmonary embolus disease." HOSPITALIZATION COURSE: Eldon Garcia is a 59-year-old male with history of seizure disorder and COPD, current smoker, who was intubated upon arrival in the ED with severe hypoxemia. The patient does not remember what happened. His positive UDS was discussed with pt who denied that he used drugs. He stated that he woke up, he was very short of breath, he tried to make himself coffee, but he was not able to drink it, and he had to call 911. He stated that he did not feel that he was sick or ill in anyway before this sudden onset of shortness of breath. He was intubated in the ED and ventilated for a couple of days until extubation that was uneventful. Post extubation, he was quickly weaned off oxygen and able to be transferred to the floor on 06/14/19. Significant microbiology workup showed negative blood cultures and sputum cultures showed normal antonio. The patient was a COVID rule out and COVID PCR was undetected. Influenza testing was also unremarkable. At admission, the patient's troponins were positive and they continued to peak until 06/10/19 when peaked at 7.48. As per the photographic lithographer's recommendation, the patient likely had demand ischemia and no further workup was undertaken. The patient's CT angiogram of the chest showed possibility of infectious process, likely aspiration pneumonia. It is suspected that the patient could have aspirated in sleep. He was treated with broad-spectrum antibiotics including ceftriaxone and azithromycin, and on the day of discharge, he completes his 5 days' course of those antibiotics that were recommended. By the time of discharge, the patient is comfortable on room air, has no issues. He still coughs up a lot of clear sputum. Please note that he did have a mild liver function test elevation with AST of 73 and ALT of 193 on 06/13/19, likely due to hypoperfusion after respiratory distress. His bilirubin was unremarkable. At discharge, the patient is recommended to follow up with his primary care provider in 4 to 7 days. For followup per primary care, the patient should have an outpatient cardiac stress test and cardiac evaluation since he peaked his troponin to 7.4 while intubated. Please note that the patient is asymptomatic from cardiac standpoint at the time of discharge and he stated that he was asymptomatic prior to his episode of respiratory failure. Please note that his liver function tests were mildly elevated and it is recommended for him to have a followup outpatient draw. I suspect that this is going to resolve by then. Due to his history of smoking and pulmonary nodules, although likely infectious , the patient is recommended to have a followup CT scan in approximately 3 to 6 months. Additionally, the patient was strongly encouraged not to smoke. PHYSICAL EXAMINATION: At the time of discharge, blood pressure of 117/73, heart rate of 61 and regular, respiratory rate 20, oxygen saturation 98% on room air, temperature 98.1. General: The patient is a very pleasant 59-year- old male, who is in no acute distress. The patient is alert and oriented x3. HEENT: Head: Atraumatic, normocephalic. Eyes: Pupils are equal, reactive to light and accommodation. Oropharynx is clear. Mucosa moist. Neck: Supple. No JVD. No bruits bilaterally. Cardiovascular: Regular rate and rhythm. No murmur. Respiratory: Clear to auscultation bilaterally. Abdomen: Soft, nontender. Bowel sounds present in all 4 quadrants. Extremities: There is no edema. Pulses are 2+ bilaterally. No clubbing or cyanosis. On neuro evaluation, speech is clear. Cranial nerves II through XII are grossly intact. Motor strength is 5/5 bilaterally. On evaluation of the skin, the patient has still a triple lumen catheter in the right IJ area that is going to be discontinued by the time of discharge. Please note that this is a short summary of the patient's hospitalization. Please refer to further medical records for details. TIME SPENT: Approximately 45 minutes was spent on the patient's discharge. [id number] #: [id number] MTDD
== END 2019-06-15 16:38 | disposition home or self-care (01) | DRG 720 ==
LOC: EDBD → ED 03:16 → ICU 07:46 → UNMERGE 07:46 → MERGE 07:46 → ICU 06-13 13:17 → MEDTELE 06-14 12:01
PROVIDERS: ADMIT Internal Medicine Critical Care Medicine; ATTEND Internal Medicine
PROC: 0BH17EZ Insertion of Endotracheal Airway into Trachea, Via Natural or Artificial Opening (ICD-10-PCS; principal; 2019-06-10)
PROC: 5A1945Z Respiratory Ventilation, 24-96 Consecutive Hours (ICD-10-PCS; 2019-06-10)
PROC: 02HV33Z Insertion of Infusion Device into Superior Vena Cava, Percutaneous Approach (ICD-10-PCS; 2019-06-10)
PROC: 3E033XZ Introduction of Vasopressor into Peripheral Vein, Percutaneous Approach (ICD-10-PCS; 2019-06-10)
DX: A41.9 Sepsis, unspecified organism (principal); R65.21 Severe sepsis with septic shock; J69.0 Pneumonitis due to inhalation of food and vomit; J96.02 Acute respiratory failure with hypercapnia; J96.01 Acute respiratory failure with hypoxia; I24.8 Other forms of acute ischemic heart disease; E87.2 Acidosis; F11.20 Opioid dependence, uncomplicated; N17.9 Acute kidney failure, unspecified; F15.20 Other stimulant dependence, uncomplicated; F05 Delirium due to known physiological condition; J44.9 Chronic obstructive pulmonary disease, unspecified; G40.909 Epilepsy, unspecified, not intractable, without status epilepticus; K21.9 Gastro-esophageal reflux disease without esophagitis; R91.8 Other nonspecific abnormal finding of lung field; F17.200 Nicotine dependence, unspecified, uncomplicated; G89.29 Other chronic pain; M54.9 Dorsalgia, unspecified; M79.7 Fibromyalgia; F12.20 Cannabis dependence, uncomplicated; M47.9 Spondylosis, unspecified; Z96.641 Presence of right artificial hip joint; E87.6 Hypokalemia; Z88.0 Allergy status to penicillin; Z87.11 Personal history of peptic ulcer disease; Z79.899 Other long term (current) drug therapy
CPT/HCPCS: 36415; 71045; 71275; 80048; 80053; 80307; 80320; 82550; 82553; 82803; 83605; 83735; 83880; 84100; 84132; 84484; 85025; 85060; 85379; 85610; 85730; 87040; 87070; 87205; 87635; 93005; 94002; 94003; 94640; 96374; 96375; 99285; A9270-GY; G0480; J0330; J0696; J1644; J1940; J2060; J2270; J2310; J2543; J2704; J2930; J3475; J3480; Q9967